=== PATIENT | female | born 1955 | race Caucasian/White ===

== ENCOUNTER → 2020-08-31 13:39 | Outpatient (BNVA) | payer MEDICARE, SELFPAY | PROVIDERS: PCP Nurse Practitioner Family; Visit Provider Internal Medicine | DX: I48.0 Paroxysmal atrial fibrillation (principal); Z51.81 Encounter for therapeutic drug level monitoring; Z79.01 Long term (current) use of anticoagulants | CPT/HCPCS: 85610; 99212 ==

== ENCOUNTER → 2020-09-03 13:05 | Outpatient (BNVA) | payer MEDICARE, SELFPAY | PROVIDERS: PCP Nurse Practitioner Family; Visit Provider Internal Medicine | DX: I48.20 Chronic atrial fibrillation, unspecified (principal); Z79.01 Long term (current) use of anticoagulants; Z51.81 Encounter for therapeutic drug level monitoring | CPT/HCPCS: 85610; 99211 ==

== ENCOUNTER → 2020-09-10 13:20 | Outpatient (BNVA) | payer MEDICARE, SELFPAY | PROVIDERS: PCP Nurse Practitioner Family; Visit Provider Internal Medicine | DX: I48.0 Paroxysmal atrial fibrillation (principal); Z51.81 Encounter for therapeutic drug level monitoring; Z79.01 Long term (current) use of anticoagulants | CPT/HCPCS: 85610; 99211 ==

== ENCOUNTER → 2020-09-21 11:24 | Outpatient (BNVA) | payer MEDICARE, SELFPAY | PROVIDERS: PCP Nurse Practitioner Family; Visit Provider Internal Medicine | DX: I48.0 Paroxysmal atrial fibrillation (principal); Z79.01 Long term (current) use of anticoagulants; Z51.81 Encounter for therapeutic drug level monitoring | CPT/HCPCS: 85610 ==

== ENCOUNTER → 2020-10-07 13:01 | Outpatient (BNVA) | payer MEDICARE, SELFPAY | PROVIDERS: PCP Nurse Practitioner Family; Visit Provider Internal Medicine | DX: I48.0 Paroxysmal atrial fibrillation (principal); Z51.81 Encounter for therapeutic drug level monitoring; Z79.01 Long term (current) use of anticoagulants | CPT/HCPCS: 85610; 99211 ==

== ENCOUNTER → 2020-11-04 12:59 | Outpatient (BNVA) | payer MEDICARE, SELFPAY | PROVIDERS: PCP Nurse Practitioner Family; Visit Provider Internal Medicine | DX: I48.0 Paroxysmal atrial fibrillation (principal); Z51.81 Encounter for therapeutic drug level monitoring; Z79.01 Long term (current) use of anticoagulants | CPT/HCPCS: 85610; 99211 ==

== ENCOUNTER → 2021-01-15 13:22 | Outpatient (BNVA) | payer MEDICARE, SELFPAY | PROVIDERS: PCP Nurse Practitioner Family; Visit Provider Internal Medicine | DX: I48.0 Paroxysmal atrial fibrillation (principal); Z79.01 Long term (current) use of anticoagulants; Z51.81 Encounter for therapeutic drug level monitoring | CPT/HCPCS: 85610; 99211 ==

== ENCOUNTER → 2021-01-29 13:53 | Outpatient (BNVA) | payer MEDICARE, SELFPAY | PROVIDERS: PCP Nurse Practitioner Family; Visit Provider Internal Medicine | DX: I48.0 Paroxysmal atrial fibrillation (principal); Z51.81 Encounter for therapeutic drug level monitoring; Z79.01 Long term (current) use of anticoagulants | CPT/HCPCS: 85610; 99211 ==

== ENCOUNTER → 2021-02-01 15:04 | Outpatient (BNVA) | payer MEDICARE, SELFPAY | PROVIDERS: PCP Nurse Practitioner Family; Visit Provider Internal Medicine | DX: I48.0 Paroxysmal atrial fibrillation (principal); Z51.81 Encounter for therapeutic drug level monitoring; Z79.01 Long term (current) use of anticoagulants | CPT/HCPCS: 85610; 99211 ==

== ENCOUNTER → 2021-02-04 15:48 | Outpatient (BNVA) | payer MEDICARE, SELFPAY | PROVIDERS: PCP Nurse Practitioner Family; Visit Provider Internal Medicine | DX: I48.0 Paroxysmal atrial fibrillation (principal); Z51.81 Encounter for therapeutic drug level monitoring; Z79.01 Long term (current) use of anticoagulants | CPT/HCPCS: 85610; 99211 ==

== ENCOUNTER → 2021-02-09 15:38 | Outpatient (BNVA) | payer MEDICARE, SELFPAY | PROVIDERS: PCP Nurse Practitioner Family; Visit Provider Internal Medicine | DX: I48.0 Paroxysmal atrial fibrillation (principal); Z51.81 Encounter for therapeutic drug level monitoring; Z79.01 Long term (current) use of anticoagulants | CPT/HCPCS: 85610; 99211 ==

== ENCOUNTER 2024-05-27 06:20 | Outpatient (REF) | payer SELFPAY ==
[2024-05-27 06:10] LABS: MANUAL DIFF FLAG NO
[2024-05-27 07:06] LABS: Basophils Percent Auto 0.1 % (0-2); Hematocrit 29.6 % (37.0-47.0); Hemoglobin 9.3 g/dl (12.0-16.0); Imm Gran Abs Auto 0.04 X10*3/uL (0.00-0.03); Imm Gran Pct Auto 0.5 % (0.0-0.4); Lymphocytes Absolute Auto 1.1 X10*3/uL (1.2-4.9); Lymphocytes Percent Auto 12.6 % (20-40); Mean Corpuscular HGB Conc 31.4 g/dl (31.0-35.0); Mean Corpuscular Hemoglobin 28.2 pg (27.0-33.0); Mean Corpuscular Volume 89.7 fL (80.0-98.0); Mean Platelet Volume 9.8 fL (9.4-12.3); Monocytes Absolute Auto 0.7 X10*3/uL (0.1-1.2); Monocytes Percent Auto 7.9 % (2-11); Neutrophils Absolute Auto 6.7 x10*3/uL (2.0-8.3); Neutrophils Percent Auto 78.9 % (45-73); Platelet Count 282 X10*3/uL (160-400); Red Cell Distribution Width 14.5 % (11.0-16.0); White Blood Count 8.5 X10*3/uL (4.8-10.8)
[2024-05-27 07:29] LABS: Anion Gap 13 (12-20); Blood Urea Nitrogen 41 mg/dL (9-16); Carbon Dioxide 28 mmol/L (22-29); Chloride 104 mmol/L (96-108); Estimated Glomerular Filt Rate 45; Glucose Random 105 mg/dL (60-115); Potassium 4.3 mmol/L (3.3-5.1); Sodium 141 mmol/L (135-145)
== END 2024-05-27 06:21 | disposition home or self-care (01) ==
LOC: HO.MMNH2L 06:20
PROVIDERS: Visit Provider Hospitalist
DX: N30.90 Cystitis, unspecified without hematuria (principal); N10 Acute pyelonephritis; G93.40 Encephalopathy, unspecified
CPT/HCPCS: 36415; 80048; 85025

== ENCOUNTER 2024-06-10 07:01 | Outpatient (REF) | payer MEDICARE, SELFPAY | END 2024-06-10 07:02 | disposition home or self-care (01) | LOC: HO.MMNH2L 07:01 | PROVIDERS: Visit Provider Hospitalist | DX: Z13.89 Encounter for screening for other disorder (principal) ==

== ENCOUNTER 2024-08-14 11:50 | Outpatient (REF) | payer SELFPAY ==
[2024-08-14 16:34] LABS: Appearance Urine Turbid; Color Urine Yellow; Glucose Urine UA Negative (Negative); Leukocyte Esterase Urine Large (3+) (Negative); Nitrite Urine Negative (Negative); PH 5.5 (5.0-9.0); Specific Gravity - Urine 1.015 (1.005-1.025); UMIC TRIGGER UACC YES; Urine Blood Moderate (2+) (Negative); Urine Ketones Negative (Negative); Urine Protein 100 (2+) mg/dL (Neg-Trace)
[2024-08-14 17:05] LABS: Bacteria Urine 4+ (None Seen); RBC Urine >20 /HPF (0-2); UACC Culture Trigger YES; WBC Urine >50 /HPF (0-5)
--- OUTSIDE RECORDS SUMMARY | 2024-08-20 19:38 | XMS_ITS | Data Portability ---
Author Organization [facility], Main Office Address [address] [address] [address] [place] [address] Care Team Providers Care Pipe Cutter Name Role Phone CAREONE (NONO UNIT) OTHER [phone] Assessment Encounter Date Assessment Date Assessment LastModified by Organization Details LastModified Time 02/12/2024 02/12/202402/06 na 138 k 3.3 cre 1.8 bun 69 wbc 12.97 hgb 9.74 hct 31.7 Not available 02/12/2024 11:23:12 02/13/2024 02/13/202402/06 na 138 k 3.3 cre 1.8 bun 69 wbc 12.97 hgb 9.74 hct 31.7 6/3 na 141 k 3.8 cre 1.3 bun 29 wbc 11.11 hgb 10 hct 34 5/28 wbc=11.1 hb=10.5 cre=2.15 glord Not available 02/13/2024 11:02:38 02/19/2024 02/19/202402/06 na 138 k 3.3 cre 1.8 bun 69 wbc 12.97 hgb 9.74 hct 31.7 6/3 na 141 k 3.8 cre 1.3 bun 29 wbc 11.11 hgb 10 hct 34 5/28 wbc=11.1 hb=10.5 cre=2.15 Not available 02/19/2024 11:50:45 02/21/2024 02/21/202402/06 na 138 k 3.3 cre 1.8 bun 69 wbc 12.97 hgb 9.74 hct 31.7 6/3 na 141 k 3.8 cre 1.3 bun 29 wbc 11.11 hgb 10 hct 34 5/28 wbc=11.1 hb=10.5 cre=2.15 02/06 na 138 k 3.3 cre 1.8 bun 69 wbc 12.97 hgb 9.74 hct 31.7 02/19: na 142, k 4.6, bun 18, creat 1.20, bnp 2601 glord Not available 02/21/2024 09:16:33 02/23/2024 02/23/202402/06 na 138 k 3.3 cre 1.8 bun 69 wbc 12.97 hgb 9.74 hct 31.7 02/11 na 141 k 3.8 cre 1.3 bun 29 wbc 11.11 hgb 10 hct 34 02/05 wbc=11.1 hb=10.5 cre=2.15 02/06 na 138 k 3.3 cre 1.8 bun 69 wbc 12.97 hgb 9.74 hct 31.7 02/19: na 142, k 4.6, bun 18, creat 1.20, bnp 2601 glord Not available 02/23/2024 09:55:55 Plan of Treatment Reminders Order Date Submit Date Provider Last Modified By Organization Details Last Modified Time Details Appointments None record ed. Lab None record ed. Referral None record ed. Procedures None record ed. Surgeries None record ed. Imaging None record ed. Medication Orders None record ed. Patient TargetsNo targets recorded. Patient InstructionsNo instructions recorded. Reason for Referral None Reported. Problems Name Problem SNOMED Code Status Onset Date Resolution Date Notes Provider Name and Address Organization Details Recorded Time Irritable bowel syndrome 99766558 Active 2023 [employer] [facility] [address], [address], [facility] [employer] 12:54:58 Obstructive sleep apnea syndrome 71989117 Active 2023 [employer] , [address], [place], [address], [facility] 4 12:55:01 Congestive heart failure 91738309 Active 2023 [employer] , [address], [place], [address], [facility] [employer] 4 12:55:05 Mixed anxiety and depressive disorder 568900386 Active 2023 [employer] , [address], [place], [address], [facility] 4 12:55:19 Falls 196264161 Active 2023 [facility], [place], [address], [facility] 4 12:55:23 Anemia 847596157 Active 2023 [facility] [address], [address], [place], [address], [facility] 4 12:55:28 Fibromyalgi a 789529960 Active 2023 [facility] [address], [address], [place], [address], [facility] 4 12:55:33 Hypercholes terolemia 67706745 Active [address], [address], [place], [address], [facility] 4 12:55:39 Essential hypertensio n 16146693 Active [address], [place], [address], [facility] 4 12:55:45 Coronary arterioscle rosis 02772523 Active [address], [address], [place], [address], [facility] 4 12:55:59 Diabetes mellitus 27430120 Active 2023 [address] , [address], [place], [address], [facility] 4 12:56:02 Aortic valve stenosis 21484226 Active [address], [address], [place], [address], [facility] 4 12:56:26 Asthma 097846805 Active 2023 [facility] [address], [address], [place], [address], [facility] 4 12:56:34 Atrial fibrillatio n 43206311 Active 2023 IRA LORD [address], [address], [place], [address], [employer] [facility] 4 12:56:39 Malignant tumor of cervix 544381185 Active 2023 IRA LORD [address], [address], [place], [address], [facility] [facility] 4 12:56:51 Morbid obesity 881898250 Active 2023 IRA LORD [address], [address], [place], [address], [facility] 4 12:57:07 Acute nontraumati c kidney injury 4862339954389 03 Active 2023 IRA LORD [address], [address], [place], [address], [facility] 4 13:27:11 Problem Notes None recorded. Procedures Surgical History Date Name Laterality Status Provider Name and Address Organization Details Recorded Time total replacement of right knee joint completed IRA LORD [address], [address], [place], [address], [facility] [facility] 02/07/2024 12:58:[address], [address], [place], [address], [facility] 02/07/2024 12:58:42 Appendectomy completed IRA LORD [address], [address], [place], [address], [facility] 02/07/2024 12:58:50 Imaging Results None recorded. Procedure Notes None recorded. Medical Equipment None Reported. Allergies Allergen ID Allergen Name Allergen Category Reaction Reaction Severity Criticality Documentation Date Start Date Code Code System Note Provider Name and Address Organization Details Recorded Time 23806 Bactrim medicatio n Not available Not available Not available 02/07/2024 27782 9 RxNorm IRA LORD [address], [address], [place], [address], [facility] 12:53:17 96802 Keflex medicatio n Not available Not available Not available 02/07/2024 13618 7 RxNorm IRA LORD [address], [address], [place], [address], [facility] 4 12:53:21 80972 clindamyc in Not available Not available Not available Not available 02/07/2024 2582 RxNorm IRA LORD [address] [facility], [address], [place], [address], [facility] [facility] 4 12:53:33 11088 gabapenti n medicatio n Not available Not available Not available 02/07/2024 97786 RxNorm IRA LORD [address] [facility], [address], [place], [address], [facility] [facility] 4 12:53:36 29788 hydrochlo rothiazid e medicatio n Not available Not available Not available 02/07/[address] [facility] [address] [facility], [address], [place], [address], [facility] [facility] 4 12:53:42 32343 Medicinal product containin g penicilli n and acting as antibacte rial agent (product) medicatio n Not available Not available Not available 02/07/2024 20534 05 SNOMED IRA LORD [address] [place] [address], [address], [place], [address], [facility] [employer] 4 12:53:51 93529 Product containin g 3-hydroxy -3-methyl glutaryl- coenzyme A reductase inhibitor (product) medicatio n Not available Not available Not available 02/07/2024 20517 009 SNOMED IRA LORD [address] [place] [address], [address], [place], [address], [facility] 4 12:53:57 Medications Not known to be on any medication Vitals Date Recorded Body temperature Heart rate Systolic blood pressure Diastolic blood pressure Provider Name and Address Organization Details Last Updated DateTime 02/12/2024 97.8 [degF] 78 /min 127 mm[Hg] 56 mm[Hg] IRA L ORD [address] [facility], [address], [place], [address] , [employer] [facility] 02/12/2024 08:48:06 Date Recorded Body weight Systolic blood pressure Diastolic blood pressure Provider Name and Address Organization Details Last Updated DateTime 02/13/2024 484998.51 g 151 mm[Hg] 56 mm[Hg] IRA LORD [address], [address], [place], [address], [facility] 02/13/2024 11:02:26 Date Recorded Body temperature Heart rate Systolic blood pressure Diastolic blood pressure Provider Name and Address Organization Details Last Updated DateTime 02/21/2024 97.4 [degF] 68 /min 150 mm[Hg] 56 mm[Hg] IRA L ORD [address] [facility], [address], [place], [address] , [facility] 02/21/2024 09:15:36 Date Recorded Body weight Provider Name an d Address Organization Details Last Updated DateTime 02/23/2024 86938.32 g IRA LORD [address] [facility], [address], [place], [address], [facility] 02/23/2024 09:28:17 Social History None recorded. Functional Status None recorded. Mental Status None recorded. Family History Nothing Reported. Medical History No medical history recorded. Gynecological HistoryNo gynecological history recorded. Obstetrics History GPAL:G 0 P 0 0 0 0 Immunizations Vaccine Type Date Status Provider Name and Address Organization Details Recorded Time Tdap 06/10/2020 completed Piedad Mai [facility] 02/09/2024 16:00:40 Pneumococcal conjugate PCV 13 07/04/2018 completed Piedad Mai [facility] 02/09/2024 16:00:54 pneumococcal polysaccharide PPV23 06/18/2019 completed Piedad Mai [facility] 02/09/2024 16:01:09 influenza, unspecified formulation 06/22/2022 completed Piedad Mai [facility] 02/09/2024 16:01:29 influenza, unspecified formulation 06/19/2023 completed Piedad Mai [facility] 02/09/2024 16:01:37 SARS-COV-2 (COVID-19) vaccine, UNSPECIFIED 12/23/2020 [facility] 16:01:57 SARS-COV-2 (COVID-19) vaccine, UNSPECIFIED 01/21/2021 completed Piedad Mai [facility] 02/09/2024 16:02:07 SARS-COV-2 (COVID-19) vaccine, UNSPECIFIED 09/01/2021 completed Piedad Mai [facility] 02/09/2024 16:02:14 Past Encounters Encounter ID Performer Location Encounter Start Date Encounter Closed Date Diagnosis/Indication Diagnosis SNOMED-CT Code Diagnosis ICD10 [facility] [id number] [facility] [address] [place] [id number] 02/07/2024 12:07:54 02/09/2024 11:05:42 Congestive heart failure 92823182 I50.9 Diabetes mellitus 842005 09 E11.9 Acute nont raumatic kidney injury 0147047647 32875 N17.9 Falls 757859492 R29.6 Coronary arteriosclerosis 93551167 I25.10 Atrial fibrillation 4943 6004 I48.91 Fibromyalgia 863548072 M 79.7 Essential hypertension 99552639 I10 Irritable bowel syndrome 14571031 K58.9 Mixed anxi ety and depressive disorder 049963956 F41.8 Obstructiv e sleep apnea syndrome 09852372 G47.33 [id number] IRA CHAPMAN [facility] on [address] [place] [id number] 02/09/2024 10:44:41 02/15/2024 15:21:43 Leukocytosis 793988214 D72.829 [id number] Haile Garcia MD [facility] on [address] [place] [id number] 02/11/2024 13:08:26 02/15/2024 15:33:56 Congestive heart failure 45204578 I50.43 Acute nont raumatic kidney injury 2263743040 36112 N17.8 Diabetes mellitus 238599 09 E11.9 Falls 916730274 R29.6 Coronary arteriosclerosis 64554720 I25.10 Atrial fibrillation 4943 6004 I48.0 Essential hypertension 69466045 I10 Irritable bowel syndrome 85729842 K58.9 Mixed anxi ety and depressive disorder 199950527 F41.8 Obstructiv e sleep apnea syndrome 16687350 G47.33 [id number] IRA Murguia [facility] on [address] [place], [place] [id number] 02/12/2024 08:45:06 02/15/2024 15:57:04 Congestive heart failure 52311013 I50.43 Acute nont raumatic kidney injury 0010054837 05112 N17.8 Falls 948958204 R29.6 Diabetes mellitus 343323 09 E11.9 [id number] IRA Murguia at [facility] on [address] [place] [address] 02/13/2024 09:10:39 02/15/2024 16:07:26 Congestive heart failure 38339857 I50.43 Acute nont raumatic kidney injury 0565238943 71556 N17.8 Falls 020559542 R29.6 [id number] IRA Murguia at [facility] on [address] [place] [address] 02/19/2024 14:02:28 02/22/2024 11:35:54 Congestive heart failure 68731862 I50.43 Acute nont raumatic kidney injury 2830634979 20248 N17.8 Falls 800000283 R29.6 [id number] IRA Murguia at [facility] on [address] [place] [address] 02/21/2024 09:14:28 02/23/2024 15:13:07 Congestive heart failure 32542804 I50.43 Acute nont raumatic kidney injury 2691932839 62820 N17.8 [id number] IRA Murguia at [facility] on [address] [place], [place] [id number] 02/23/2024 09:25:30 02/28/2024 10:22:25 Congestive heart failure 57166744 I50.43 Acute nont raumatic kidney injury 7998401533 21740 N17.8 Falls 714525174 R29.6 Diabetes mellitus 972563 09 E11.9 Coronary arteriosclerosis 61413374 I25.10 Atrial fibrillation 4943 6004 I48.91 Fibromyalgia 435051299 M 79.7 Essential hypertension 71484089 I10 Irritable bowel syndrome 92105291 K58.9 Mixed anxi ety and depressive disorder 930529820 F41.8 Obstructiv e sleep apnea syndrome 25230660 G47.33 Health Concerns Section Related Observation LastModified by Organization Detai ls LastModified Time None Recorded Concern Status LastModified by Organization Details LastModified Time None Recorded Advance Directives Directive None Recorded Payers Encounter Date Sequence Insurance Name Policy Number Policy Nichols Covered Member ID Nichols Member ID Guarantor Name 02/12/2024 1 MEDICARE B-[place]: [facility] Risa Cisneros [id number] Risa Cisneros 02/12/2024 2 [employer] (MEDICARE SUPPLEMENT) Risa Cisneros [id number] Risa Cisneros 02/13/2024 1 MEDICARE B-ME: [facility] Risa Cisneros [id number] Risa Cisneros 02/13/2024 2 [employer] (MEDICARE SUPPLEMENT) Risa Cisneros [id number] Risa Cisneros 02/19/2024 1 MEDICARE B-ME: [facility] Risa Cisneros [id number] Risa Cisneros 02/19/2024 2 [employer] (MEDICARE SUPPLEMENT) Risa Cisneros [id number] Risa Cisneros 02/21/2024 1 MEDICARE B-ME: [facility] Risa Cisneros [id number] Risa Cisneros 02/21/2024 2 [employer] (MEDICARE SUPPLEMENT) Risa Cisneros [id number] Risa Cisneros 02/23/2024 1 MEDICARE B-ME: [facility] Risa Cisneros [id number] Risa Cisneros 02/23/2024 2 [employer] (MEDICARE SUPPLEMENT) Risa Cisneros [id number] Risa Cisneros Notes Date Note Type Note Provider Name and Address Organization Details Recorded Time 02/12/2024 text/html Patient is a 68 yo female being seen for acute rounding. She is an admit from hospital after presenting with increasing shortness of breath and recurrent falls. Noted to be in ARF with nephro consulted. Dx with chf exacerbation treated with IV lasix. Cre jordan to 1.7 from baseline 1.1-1.2 improved with supportive care to f/u nephro out patient. An order of torsemide PRN was placed yesterday, if weight gain is +3lbs. Her weight was up so the torsemide was given, however she likely needs to continue this dose as she would not gain another 3 lbs today to trigger nurses to give order. Will place her on torsemide x 3 days and re-eval weights. Seen today. She was lying flat in bed sleeping. She denies orthopnea or sob. Legs are puffy. She received a dose of torsemide this morning which made her urinate a lot she said. Updated on plan to continue diuresing. Continue daily weights IRA CHAPMAN [address] [place] [address], [address], [place], [address], [employer] 02/12/2024 12:01:38 02/13/2024 text/html Patient is a 68 yo female being seen for acute rounding. She is an admit from hospital after presenting with increasing shortness of breath and recurrent falls. Noted to be in ARF with nephro consulted. Dx with chf exacerbation treated with IV lasix. Cre jordan to 1.7 from baseline 1.1-1.2 improved with supportive care to f/u nephro out patient. Patient is up 5 lbs since admission. Torsemide 40 mg po daily X3 days started with plan to re-eval weights. She was seen and evaluated today. She was sitting up in bed. She denies any sob or orthopnea. Her legs continue to be puffy, same as yesterday. She is saturating 94% on RA. BP entered this morning much higher than what shes been, on recheck 151/56, but she just received her am meds. IRA CHAPMAN [address] [place] [address], [address], [place], [address], [facility] 02/13/2024 11:03:20 02/19/2024 text/html Patient is a 68 yo female being seen for acute rounding. She is an admit from hospital after presenting with increasing shortness of breath and recurrent falls. Noted to be in ARF with nephro consulted. Dx with chf exacerbation treated with IV lasix. Cre jordan to 1.7 from baseline 1.1-1.2 improved with supportive care to f/u nephro out patient. Rehab course complicated by CHF. Patient initially up 5 lbs since admission. Torsemide given for 3 days with last dose 02/15. Weight was trending down, now back up 8 lbs since admission. Seen today. Sitting up on chair in dining area. She says she feels horrible, tired, and sob. She reports orthopnea and feels shes filling up with fluids. It is hard to fit in her clothes and put shoes on. Maintaining sats 95/97% on RA. IRA CHAPMAN [address] [place] [address], [address], [place], [address], [employer] 02/19/2024 14:04:57 02/21/2024 text/html Patient is a 68 yo female being seen for acute rounding. She is an admit from hospital after presenting with increasing shortness of breath and recurrent falls. Noted to be in ARF with nephro consulted. Dx with chf exacerbation treated with IV lasix. Cre jordan to 1.7 from baseline 1.1-1.2 improved with supportive care to f/u nephro out patient. Rehab course complicated by CHF. Patient initially up 5 lbs since admission. Torsemide given for 3 days with last dose 02/15. Weight was trending down, then back up 8 lbs since admission. She was placed back on torsemide 40 mg daily x 3 days on 02/18, weights today appear to be climbing, 227. She ws supposed to DC home tomorrow, will keep her until monday and try to diurese. IRA CHAPMAN [address] [place] [address], [address], [place], [address], [employer] 02/21/2024 09:35:15 02/23/2024 text/html Patient is a 68 yo female being seen for discharge summary visit. She is an admit from hospital after presenting with increasing shortness of breath and recurrent falls. Noted to be in ARF with nephro consulted. Dx with chf exacerbation treated with IV lasix. Cre jordan to 1.7 from baseline 1.1-1.2 improved with supportive care to f/u nephro out patient. Rehab course complicated by CHF. Patient initially up 10 lbs since admission. She was placed back on torsemide, most recently on 80 mg BID. She is now down 7 lbs. She will DC home today with meds and services. Will decrease torsemide back to 40 mg daily and ask VNA and PCP to monitor. CHECK WEIGHTS DAILY AT HOME, IF INCREASE OF 3 LBS SHOULD TITRATE TORSEMIDE DOSING. IRA CHAPMAN [address] [place] [address], [address], [place], [address], [facility] [employer] 02/23/2024 09:56:21 OBGyn Episode No OBEpisode recorded.
== END 2024-08-14 11:51 | disposition home or self-care (01) ==
LOC: HO.HVNA 11:50
PROVIDERS: Visit Provider Nurse Practitioner Family
DX: N39.0 Urinary tract infection, site not specified (principal)
CPT/HCPCS: 81001; 87086

== ENCOUNTER 2024-08-29 13:40 | Outpatient (REF) | payer MEDICARE, SELFPAY ==
--- OUTSIDE RECORDS SUMMARY | 2024-08-29 14:02 | XMS_ITS | Data Portability ---
Author Organization [facility], Main Office Address [address] [address] [address] [place] [address] Care Team Providers Care Gray Mixing Operator Name Role Phone CAREONE (NONO UNIT) OTHER [phone] Assessment Encounter Date Assessment Date Assessment LastModified [...] Organization Details Recorded Time Irritable bowel syndrome 40495448 Active [facility]23 [facility] [address], [address], [facility] 12:54:58 Obstructive sleep apnea syndrome 56580459 Active 2023 [employer] , [address], [place], [address], [facility] 4 12:55:01 Congestive heart failure 71799239 Active 2023 [employer] , [address], [place], [address], [facility] 4 12:55:05 Mixed anxiety and depressive disorder 774675487 Active 2023 [employer] , [address], [place], [address], [facility] 4 12:55:19 Falls 337638581 Active [address], [place], [address], [facility] 4 12:55:23 Anemia [address]242 Active [address] [facility] [address], [address], [place], [address], [facility] 4 12:55:28 Fibromyalgi a 146004681 Active [address] [facility] [address], [address], [place], [address], [facility] 4 12:55:33 Hypercholes terolemia 07401154 Active [address], [address], [place], [address], [facility] 4 12:55:39 Essential hypertensio n 36765723 Active [address], [place], [address], [facility] 4 12:55:45 Coronary arterioscle rosis 16700519 Active [address], [place], [address], [facility] 4 12:55:59 Diabetes mellitus 71889383 Active [address] , [address], [place], [address], [facility] 4 12:56:02 Aortic valve stenosis 35487438 Active [address], [address], [place], [address], [facility] 4 12:56:26 Asthma 6[address]6048 Active [address] [facility] [address], [address], [place], [address], [facility] 4 12:56:34 Atrial fibrillatio n 69745906 Active 2023 IRA LORD [address], [address], [place], [address], [facility] 4 12:56:39 Malignant tumor of cervix 521875502 Active 2023 IRA LORD [address], [address], [place], [address], [facility] 4 12:56:51 Morbid obesity 786154924 Active 2023 IRA LORD [address], [address], [place], [address], [facility] 4 12:57:07 Acute nontraumati c kidney injury 8782366735966 03 Active 2023 IRA LORD [address], [address], [place], [address], [facility] 4 13:27:11 Problem Notes None recorded. Procedures Surgical History Date Name Laterality Status Provider Name and Address Organization Details Recorded Time total replacement of right knee joint completed IRA LORD [address], [address], [place], [address], [facility] 02/07/2024 12:58:[address] delivery completed IRA LO [address], [address], [place], [address], [facility] 02/07/2024 12:58:42 Appendectomy completed IRA LORD [address], [address], [place], [address], [facility] 02/07/2024 12:58:50 Imaging Results None recorded. Procedure Notes None recorded. Medical Equipment None Reported. Allergies Allergen ID Allergen Name Allergen Category Reaction Reaction Severity Criticality Documentation Date Start Date Code Code System Note Provider Name and Address Organization Details Recorded Time [id number] 376192116 2675088i3 2824e Bactrim medicatio n Not available Not available Not available 02/07/2024 90296 9 RxNorm Not Available Not Available Not Available [id number] 648534914 2359065n2 2824e Keflex medicatio n Not available Not available Not available 02/07/2024 46718 7 RxNorm Not Available Not Available Not Available [id number] 905494338 6031755q0 2824e clindamyc in Not available Not available Not available Not available 02/07/2024 2582 RxNorm Not Available Not Available Not Available [id number] 587944447 8873522m3 2824e gabapenti n medicatio n Not available Not available Not available 02/07/2024 01499 RxNorm Not Available Not Available Not Available [id number] 455910655 [id number] 2824e hydrochlo rothiazid e medicatio n Not available Not available Not available 02/07/2024 5487 RxNorm Not Available Not Available Not Available [id number] 780403683 [id number] 2824e Medicinal product containin g penicilli n and acting as antibacte rial agent (product) medicatio n Not available Not available Not available 02/07/2024 93651 05 SNOMED Not Available Not Available Not Available [id number] 352207787 9279348e4 2824e Product containin g 3-hydroxy -3-methyl glutaryl- coenzyme A reductase inhibitor (product) medicatio n Not available Not available Not available 02/07/2024 78053 009 SNOMED Not Available Not Available Not Available Medications Not known to be on any medication Vitals Date Recorded Body temperature Heart rate Systolic blood pressure Diastolic blood pressure Provider Name and Address Organization Details Last Updated DateTime 02/12/2024 97.8 [degF] 78 /min 127 mm[Hg] 56 mm[Hg] IRA L ORD [address], [address] , [facility] 02/12/2024 08:48:06 Date Recorded Body weight Systolic blood pressure Diastolic blood pressure Provider Name and Address Organization Details Last Updated DateTime 02/13/2024 932671.51 g 151 mm[Hg] 56 mm[Hg] IRA LORD [address], [address], [address], [facility] 02/13/2024 11:02:26 Date Recorded Body temperature Heart rate Systolic blood pressure Diastolic blood pressure Provider Name and Address Organization Details Last Updated DateTime 02/21/2024 97.4 [degF] 68 /min 150 mm[Hg] 56 mm[Hg] IRA L ORD 38 [facility], [address], [place], [address] , [facility] 02/21/2024 09:15:36 Date Recorded Body weight Provider Name an d Address Organization Details Last Updated DateTime 02/23/2024 79185.32 g IRA CHAPMAN [address] [facility], [address], [place], [address], [facility] 02/23/2024 09:28:17 Social History None recorded. Functional Status None recorded. Mental Status None recorded. Family History Nothing Reported. Medical History No medical history recorded. Gynecological HistoryNo gynecological history recorded. Obstetrics History GPAL:G 0 P 0 0 0 0 Immunizations Vaccine Type Date Status Note Provider Nam e and Address Organization Details Recorded Time Tdap 0 [facility] 16:00:40 Pneumococcal conjugate PCV 13 8 [facility] 02/09/2024 16:00:54 pneumococcal polysaccharide PPV23 9 [facility] 02/09/2024 16:01:09 influenza, unspecified formulation 2 completed [facility] 02/09/2024 16:01:29 influenza, unspecified formulation 3 completed [facility] 02/09/2024 16:01:37 SARS-COV-2 (COVID-19) vaccine, UNSPECIFIED 1 [facility] 02/09/2024 16:01:57 SARS-COV-2 (COVID-19) vaccine, UNSPECIFIED 1 completed Piedad [facility] 02/09/2024 16:02:07 SARS-COV-2 (COVID-19) vaccine, UNSPECIFIED 1 completed [facility] 02/09/2024 16:02:14 Past Encounters Encounter ID Performer Location Encounter Start Date Encounter Closed Date Diagnosis/Indication Diagnosis SNOMED-CT Code Diagnosis ICD10 Code [id number] [facility] [address] [place] [address] 02/07/2024 12:07:54 02/09/2024 11:05:42 Congestive heart failure 02463100 I50.9 Diabetes mellitus 878093 09 E11.9 Acute nont raumatic kidney injury 4473875405 15934 N17.9 Falls 316297848 R29.6 Coronary arteriosclerosis 35263810 I25.10 Atrial fibrillation 4943 6004 I48.91 Fibromyalgia 051058750 M 79.7 Essential hypertension 66026170 I10 Irritable bowel syndrome 89556068 K58.9 Mixed anxi ety and depressive disorder 828681434 F41.8 Obstructiv e sleep apnea syndrome 72846870 G47.33 [id number] [facility] [address] [place] [id number] 02/09/2024 10:44:41 02/15/2024 15:21:43 Leukocytosis 015061360 D72.829 [id number] MD [facility] [address] [place] [id number] 02/11/2024 13:08:26 02/15/2024 15:33:56 Congestive heart failure 15673607 I50.43 Acute nont raumatic kidney injury 7656293093 27282 N17.8 Diabetes mellitus 682852 09 E11.9 Falls 802474075 R29.6 Coronary arteriosclerosis 52137311 I25.10 Atrial fibrillation 4943 6004 I48.0 Essential hypertension 54576456 I10 Irritable bowel syndrome 93405128 K58.9 Mixed anxi ety and depressive disorder 428809682 F41.8 Obstructiv e sleep apnea syndrome 13966334 G47.33 [id number] [facility] [address] [place] [id number] 02/12/2024 08:45:06 02/15/2024 15:57:04 Congestive heart failure 25186180 I50.43 Acute nont raumatic kidney injury 1901544505 67187 N17.8 Falls 108569779 R29.6 Diabetes mellitus 169097 09 E11.9 [id number] [facility] [address] [place] [id number] 02/13/2024 09:10:39 02/15/2024 16:07:26 Congestive heart failure 21747368 I50.43 Acute nont raumatic kidney injury 7933060340 51770 N17.8 Falls 560897313 R29.6 [id number] IRA [facility] on [address] [place] [id number] 02/19/2024 14:02:28 02/22/2024 11:35:54 Congestive heart failure 72603622 I50.43 Acute nont raumatic kidney injury 0135869190 65584 N17.8 Falls 706800149 R29.6 [id number] IRA [facility] on [address] [place] [id number] 02/21/2024 09:14:28 02/23/2024 15:13:07 Congestive heart failure 87154302 I50.43 Acute nont raumatic kidney injury 7371217209 39623 N17.8 [id number] IRA [facility]urg[facility] on [address] [place] [id number] 02/23/2024 09:25:30 02/28/2024 10:22:25 Congestive heart failure 35444001 I50.43 Acute nont raumatic kidney injury 7361097037 69695 N17.8 Falls 480902521 R29.6 Diabetes mellitus 995744 09 E11.9 Coronary arteriosclerosis 65760622 I25.10 Atrial fibrillation 4943 6004 I48.91 Fibromyalgia 565111042 M 79.7 Essential hypertension 87458946 I10 Irritable bowel syndrome 45544654 K58.9 Mixed anxi ety and depressive disorder 295560412 F41.8 Obstructiv e sleep apnea syndrome 08510930 G47.33 Health Concerns Section Related Observation LastModified by Organization Detai ls LastModified Time None Recorded Concern Status LastModified by Organization Details LastModified Time None Recorded Advance Directives Directive None Recorded Payers Encounter Date Sequence Insurance Name Policy Number Policy Nichols Covered Member ID Nichols Member ID Guarantor Name 02/12/2024 1 MEDICARE [place]: [facility] [employer] Risa Cisneros [id number] Risa Cisneros 02/12/2024 2 [employer] OPTIONS (MEDICARE SUPPLEMENT) Risa Cisneros [id number] iRsa Cisneros 02/13/2024 1 [place] [facility] Risa Cisneros [id number] Risa Cisneros 02/13/2024 2 [employer] OPTIONS (MEDICARE SUPPLEMENT) Risa Cisneros [id number] Risa Cisneros 02/19/2024 1 [place] [facility] Risa Cisneros [id number] Risa Cisneros 02/19/2024 2 [employer] OPTIONS (MEDICARE SUPPLEMENT) Risa Cisneros [id number] Risa Cisneros 02/21/2024 1 [place] [facility] Risa Cisneros [id number] Risachristiane Cisneros 02/21/2024 2 [employer] OPTIONS (MEDICARE SUPPLEMENT) Risa Cisneros [id number] Risa Cisneros 02/23/2024 1 [place] [facility] Risa Cisneros [id number] Risa Cisneros 02/23/2024 2 [employer] OPTIONS (MEDICARE SUPPLEMENT) Risa Cisneros [id number] Risa Cisneros Notes Date Note Type Note [...] continue diuresing. Continue daily weights IRA CHAPMAN [address] [place] [address], [address], [place], [address], [facility] 02/12/2024 12:01:38 02/13/2024 text/html Patient is a [...] just received her am meds. IRA CHAPMAN [address] [place] [address], [address], [place], [address], [facility] 02/13/2024 11:03:20 02/19/2024 text/html Patient is a [...] Maintaining sats 95/97% on RA. IRA CHAPMAN [address] [place] [address], [address], [place], [address], [facility] 02/19/2024 14:04:57 02/21/2024 text/html Patient is a [...] monday and try to diurese. IRA CHAPMAN [address] [place] [address], [address], [place], [address], [facility] 02/21/2024 09:35:15 02/23/2024 text/html Patient is a [...] LBS SHOULD TITRATE TORSEMIDE DOSING. IRA CHAPMAN [address] [place] [address], [address], [place], [address], [facility] 02/23/2024 09:56:21 OBGyn Episode No OBEpisode recorded.
[2024-08-29 16:47] LABS: Appearance Urine Cloudy; Color Urine Yellow; Glucose Urine UA Negative (Negative); Leukocyte Esterase Urine Small (1+) (Negative); Nitrite Urine Negative (Negative); Specific Gravity - Urine 1.015 (1.005-1.025); UMIC TRIGGER UACC YES; Urine Blood Negative (Negative); Urine Ketones Negative (Negative); Urine Protein Negative (Neg-Trace)
[2024-08-29 16:52] LABS: Bacteria Urine None Seen (None Seen); RBC Urine 0-2 /HPF (0-2); UACC Culture Trigger YES
== END 2024-08-29 13:41 | disposition home or self-care (01) ==
LOC: HO.HVNA 13:40
PROVIDERS: Visit Provider Internal Medicine
DX: R30.0 Dysuria (principal)
CPT/HCPCS: 81001; 87086

== ENCOUNTER 2024-12-16 12:02 | Outpatient (REF) | payer MEDICARE, SELFPAY ==
--- OUTSIDE RECORDS SUMMARY | 2024-12-16 14:30 | XMS_ITS | Encounter Summary ---
Author Organization [facility], Address [address] [place] [address] Phone Care Team Providers Care Sprigger Name Role Phone Olamide Lyle NP Primary Care Provider [phone]- [phone] Encounter Details Date Type Department Care Team (Late st Contact Info) Description 10/11/2024 Documentation Only [facility], [address] [place] [address] Leonie Thomas [place] [address] [place] [address] Social History Tobacco Use Types Packs/Day Years Used Date Smoking Tobacco: Never Assessed Comments Unknown Sex and Gender Information Value Date Recorded Sex Assigned at Not on file Legal Sex Female 5:12 PM EST Gender Identity Not on file Sexual Orientation Not on file documented as of this encounter Plan of Treatment Not on file documented as of this encounter Visit Diagnoses Not on filedocumented in this encounter Care Teams Sprigger Relationship Specialty Start Date End Date Olamide Lyle NP [address] [place] [address], [address] [place] [address] PCP - General Nurse Practitioner 03/04/24 documented as of this encounter
--- OUTSIDE RECORDS SUMMARY | 2024-12-16 14:30 | XMS_ITS | Encounter Summary ---
Author Organization [facility], Address [address] [place] [address] Phone Care Team Providers Care Wafer Production Lead Worker Name Role Phone Olamide Lyle NP Primary Care Provider +1- [phone] Encounter Details Date Type Department Care Team (Late st Contact Info) Description 10/11/2024 Documentation Only [facility], [address] [place] [address] [address] [place] [address] Social History Tobacco Use Types [...] on filedocumented in this encounter Care Teams Wafer Production Lead Worker Relationship Specialty Start Date End Date Olamide Lyle NP [address] [place] [address], [address] [place] [address] PCP - General Nurse Practitioner 03/04/24 documented as of this encounter
--- OUTSIDE RECORDS SUMMARY | 2024-12-16 14:30 | XMS_ITS | Encounter Summary ---
Author Organization [facility], Address [address] [place] [address] Phone Care Team Providers Care Housekeeper Manager Name Role Phone Olamide Lyle NP Primary Care Provider +1- [phone] Encounter Details Date Type Department Care Team (Late st Contact Info) Description 04/08/2024 Documentation Only [facility], [address] [place] [address] Haleigh Almanza [address] [place] [address] Social History Tobacco Use Types [...] on filedocumented in this encounter Care Teams Housekeeper Manager Relationship Specialty Start Date End Date Olamide Lyle NP [address] [place] [address], [address] [place] [address] PCP - General Nurse Practitioner 03/04/24 documented as of this encounter
--- OUTSIDE RECORDS SUMMARY | 2024-12-16 14:30 | XMS_ITS | Encounter Summary ---
Author Organization [facility], Address [address] [place] [address] Phone Care Team Providers Care Road Maker Name Role Phone Olamide Lyle NP Primary Care Provider [phone]- [phone] Encounter Details Date Type Department Care Team (Late st Contact Info) Description 04/08/2024 Documentation Only [facility], [address] [place] [address] Haleigh Almanza [address] [place] [address] Social History Tobacco Use Types [...] on filedocumented in this encounter Care Teams Road Maker Relationship Specialty Start Date End Date Olamide Lyle NP [address] [place] [address], [address] [place] [address] PCP - General Nurse Practitioner 03/04/24 documented as of this encounter
--- OUTSIDE RECORDS SUMMARY | 2024-12-16 14:30 | XMS_ITS | Encounter Summary ---
Author Organization [facility], Address [address] [place] [address] Phone Care Team Providers Care Barrel Bridge Assembler Name Role Phone Olamide Lyle NP Primary Care Provider [phone]- [phone] Encounter Details Date Type Department Care Team (Late st Contact Info) Description 04/08/2024 Documentation Only [facility], [address] [place] [address] Haleigh Almanza [address] [place] [address] Social History Tobacco Use Types [...] on filedocumented in this encounter Care Teams Barrel Bridge Assembler Relationship Specialty Start Date End Date Olamide Lyle NP [address] [place] [address], [address] [place] [address] PCP - General Nurse Practitioner 03/04/24 documented as of this encounter
--- OUTSIDE RECORDS SUMMARY | 2024-12-16 14:30 | XMS_ITS | Encounter Summary ---
Author Organization [facility], Address [address] [place] [address] Phone Care Team Providers Care Scheduling Analyst Name Role Phone Olamide Lyle NP Primary Care Provider +1- [phone] Encounter Details Date Type Department Care Team (Late st Contact Info) Description 10/11/2024 Documentation Only [facility], [address] [place] [address] Leonie Thomas [place] [address] [place] [address] Social History Tobacco Use Types [...] on filedocumented in this encounter Care Teams Scheduling Analyst Relationship Specialty Start Date End Date Olamide Lyle NP [address] [place] [address], [address] [place] [address] PCP - General Nurse Practitioner 03/04/24 documented as of this encounter
--- OUTSIDE RECORDS SUMMARY | 2024-12-16 14:31 | XMS_ITS | Clinical Summary ---
Author Organization [facility], Address [address] [place] [address] [place] [address] Phone Care Team Providers Care Automatic Developer Name Role Phone Olamide Lyle NP Primary Care Provider [phone] Allergies Active Allergy Reactions Criticality Noted Date Comments Atorvastatin 02/06/2024 Other Reaction(s): muscle aches, Unknown Cephalexin 05/20/2021 Could not breathe, felt like drowning and could not catch breath. Clindamycin Other (see comments) 08/05/2017 Other Reaction(s): Unknown Level of certainty: Very Certain Metallic taste. Gabapentin Other (see comments) 01/24/2024 Other Reaction(s): Unknown Level of certainty: Very Certain Hydrochlorothiazide Other (see comments) 08/05/2017 Other Reaction(s): body aches, Unknown Level of certainty: Very Certain Milk (Cow) 02/06/2024 Penicillins Rash Low 02/06/2024 Other Reaction(s): Unknown Level of certainty: Very Certain Sulfamethoxazole-Trimethopr im GI intolerance 08/05/2017 Other Reaction(s): Unknown, upset stomach Level of certainty: Very Certain Medications aspirin (ST BARAK) 81 MG EC tablet Take 81 mg by mouth 1 (one) time each day Active Cholecalciferol 50 MCG (1999 UT) capsule Take by mouth Acti ve clopidogrel (PLAVIX) 75 MG tablet Take 75 mg by mouth 1 (one) time each day Active gabapentin (NEURONTIN) 100 MG capsule Take 100 mg by mouth in the morning and 100 mg in the evening and 100 mg before bedtime. Active LORazepam (ATIVAN) 0.5 MG tablet Take 0.5 mg by mouth every 6 (six) hours if needed for anxiety Active losartan (COZAAR) 25 MG tablet Take 25 mg by mouth 1 (one) time each day Active meclizine (ANTIVERT) 12.5 MG tablet Take 12.5 mg by mouth 3 (three) times a day if needed for dizziness Active metoprolol tartrate (LOPRESSOR) 50 MG tablet Take 50 mg by mouth in the morning and 50 mg in the evening. Active nitroglycerin (NITROSTAT) 0.[address] 0.4 mg under the tongue every 5 (five) minutes if needed for chest pain Active pantoprazole (PROTONIX) 40 MG EC tablet Take 40 mg by mouth 1 (one) time each day before breakfast Do not crush, chew, or split. Active rosuvastatin (CRESTOR) 40 MG tablet Take 40 mg by mouth 1 (one) time each day Active sertraline (ZOLOFT) 100 MG tablet Take 100 mg by mouth 1 (one) time each day Active torsemide (DEMADEX) 20 MG tablet Take 20 mg by mouth 1 (one) time each day Active Active Problems Problem Noted Date Diagnosed Date Anemia 04/08/2024 Vitamin D deficiency 04/21/2022 Overview (04/08/2024): Last Assessment & Plan: Unclear if stable, check lab Acute on chronic systolic heart failure 03/09/20 21 Overview (09/05/2024): Last Assessment & Plan: The patient has been advised to monitor her weight daily and to contact us if she experiences a weight gain of more than 3 pounds. Essential hypertension 08/05/2017 Overview (04/08/2024): Last Assessment & Plan: Stable, BP well controlled on current regimen. Continues on losartan, metoprolol and torsemide. Type 2 diabetes mellitus 08/05/2017 Overview (09/05/2024): Last Assessment & Plan: T2DM, metformin now on hold due to renal status. An A1c test will be conducted. MCR done last month high 406, new referral pending for nephrology consult. Atrial fibrillation 10/12/2016 Overview (09/05/2024): Last Assessment & Plan: Hx PAF, now s/p watchman procedure (03/08/2023), off warfarin, now on Plavix and baby aspirin. Encounters Date Type Department Care Team Description 11/13/2024 4:30 PM EST Office Visit [facility] [address] [place] [address] Eric Saavedra MD Stage 3a chronic kidney disease (HCC) (Primary Dx) 10/11/2024 Documentation Only [facility] [address] [place] [address] Leonie Thomas MA 10/11/2024 Documentation Only [facility] [address] [place] [address] Leonie Thomas MA 10/11/2024 Documentation Only [facility] [address] [place] [address] Leonie Thomas MA from Last 3 Months Immunizations Name Administration Dates Next Due Influenza (IM) Preservative Free 07/28/2016,06/11 Influenza Split Preservative Free ID 05/07/2013 Influenza, Quadrivalent, Pre servative Free 06/06/2019,06/11/2018 Influenza, Unspecified 06/19/2023,2022,06/22/2022,07/22,05/11/2020,06/11/2019,07/07/2011 Moderna SARS-COV-2 09/01/2021,01/21/2021, 021 PPD Test 02/06/2024,02/06/2024 Pneumococcal Conjugate 13-Valent 07/04/2018 Pneumococcal Polysaccharide 06/18/2019, 6 Respiratory Syncytial Virus (Rsv), Unspecified 02/16/2024 Tdap 06/10/2020,11/28/2007,11/28/2007 Social History Tobacco Use Types Packs/Day Years Used Date Smoking Tobacco: Never Assessed Comments Unknown Sex and Gender Information Value Date Recorded Sex Assigned at Not on file Legal Sex Female 5:12 PM EST Gender Identity Not on file Sexual Orientation Not on file Plan of Treatment Health Maintenance Due Date Last Done Comments Breast Cancer Screening 1955 Colorectal Cancer Screening: Annual FOBT 2004 Colorectal Cancer Screening: Colonoscopy 2004 Colorectal Cancer Screening: Sigmoidoscopy 2004 Diabetes: Hemoglobin A1C 02/10/2024 Diabetes: Ophthalmology Exam 02/10/2024 Diabetes: Pedal Pulse Checked 02/10/2024 Diabetes: Sensory Foot Exam 02/10/2024 Diabetes: Visual Foot Exam 02/10/2024 Pneumococcal Vaccine: 65+ Years (4 of 4 - PPSV23 or PCV20) 06/18/2024 06/18/2019, 07/04/2018, 10/26/2015 Influenza Vaccine (Season Ended) 2025 06/19/2023, 03/19/2023, 06/22/2022, Additional history exists Hepatitis B Vaccine Aged Out No longe r eligible based on patient's age to complete this topic Insurance [facility] MEDICARE Care Teams Automatic Developer Relationship Specialty Start Date End Date Olamide Lyle NP [address] [place] [address], [address] [place] [address] PCP - General Nurse Practitioner 03/04/24
--- OUTSIDE RECORDS SUMMARY | 2024-12-16 14:31 | XMS_ITS | Encounter Summary ---
Author Organization [facility], Address [address] [place] [address] Phone Care Team Providers Care Card Hanger Name Role Phone Olamide Lyle NP Primary Care Provider [phone]- [phone] Encounter Details Date Type Department Care Team (Late st Contact Info) Description 02/29/2024 Documentation Only [facility], [address] [place] [address] Lashawn Cruz [address] [place] [address] Social History Tobacco Use Types [...] on filedocumented in this encounter Care Teams Card Hanger Relationship Specialty Start Date End Date Olamide Lyle NP [address] [place] [address], [address] [place] [address] PCP - General Nurse Practitioner 03/04/24 documented as of this encounter
--- OUTSIDE RECORDS SUMMARY | 2024-12-16 14:31 | XMS_ITS | Encounter Summary ---
Author Organization [facility], Address [address] [place] [address] Phone Care Team Providers Care Beam Warper Name Role Phone Olamide Lyle NP Primary Care Provider [phone]- [phone] Encounter Details Date Type Department Care Team (Late st Contact Info) Description 04/08/2024 Documentation Only [facility], [address] [place] [address] Haleigh Almazna [address] [place] [address] Social History Tobacco Use Types [...] on filedocumented in this encounter Care Teams Beam Warper Relationship Specialty Start Date End Date Olamide Lyle NP [address] [place] [address], [address] [place] [address] PCP - General Nurse Practitioner 03/04/24 documented as of this encounter
--- OUTSIDE RECORDS SUMMARY | 2024-12-16 14:31 | XMS_ITS | Data Portability ---
Author Organization [facility], Main Office Address [address] [address] [address] [place] [address] Care Team Providers Care Associate Name Role Phone CAREONE (NONO UNIT) OTHER Assessment Encounter Date Assessment Date Assessment LastModified by Organization Details LastModified Time 02/12/2024 02/12/202402/06 na 138 k 3.3 cre 1.8 bun 69 wbc 12.97 hgb 9.74 hct 31.7 [email or web address] Not available 02/12/2024 11:23:12 02/13/2024 02/13/202402/06 na [...] 10 hct 34 5/28 wbc=11.1 hb=10.5 cre=2.15 [email or web address] Not available 02/19/2024 11:50:45 02/21/2024 02/21/202402/06 na [...] Organization Details Recorded Time Irritable bowel syndrome 05221994 Active 2023 [facility] [address], [address], [facility] 12:54:58 Obstructive sleep apnea syndrome 98552710 Active 2023 [facility] , [address], [place], [address], [facility] 4 12:55:01 Congestive heart failure 81334480 Active 2023 [facility] , [address], [place], [address], [facility] 4 12:55:05 Mixed anxiety and depressive disorder 397825069 Active 2023 [facility] , [address], [place], [address], [facility] 4 12:55:19 Falls 363099515 Active [address] [facility] [address] [facility] [address], [place], [address], [facility] 4 12:55:23 Anemia 793890283 Active 2023 [facility] [address], [address], [place], [address], [facility] 4 12:55:28 Fibromyalgi a 704881800 Active 2023 [facility] [address], [address], [place], [address], [facility] 4 12:55:33 Hypercholes terolemia 14693530 Active [address], [address], [place], [address], [facility] 4 12:55:39 Essential hypertensio n 10366875 Active [address], [place], [address], [facility] 4 12:55:45 Coronary arterioscle rosis 22355094 Active [address], [address], [place], [address], [facility] 4 12:55:59 Diabetes mellitus 26177673 Active [address] , [address], [place], [address], [facility] 4 12:56:02 Aortic valve stenosis 01639251 Active [address], [address], [place], [address], [facility] 4 12:56:26 Asthma 673957305 Active 2023 [facility] [address], [address], [place], [address], [facility] 4 12:56:34 Atrial fibrillatio n 48175811 Active 2023 IRA LORD [address], [address], [place], [address], [facility] 4 12:56:39 Malignant tumor of cervix 282797449 Active 2023 IRA LORD [address], [address], [place], [address], [facility] [employer] [employer] 4 12:56:51 Morbid obesity 708806608 Active 2023 IRA LORD [address], [address], [place], [address], [facility] [employer] [facility] 4 12:57:07 Acute nontraumati c kidney injury 7652425654691 03 Active 2023 IRA LORD [address], [address], [place], [address], [facility] 4 13:27:11 Problem Notes None recorded. Procedures Surgical History Date Name Laterality Status Provider Name and Address Organization Details Recorded Time total replacement of right knee joint completed IRA LORD [address], [address], [place], [address], [facility] 02/07/2024 12:58:[address] delivery completed IRA LO [address], [address], [place], [address], [facility] [employer] [facility] 02/07/2024 12:58:42 Appendectomy completed IRA LORD [address], [address], [place], [address], [facility] [employer] [facility] 02/07/2024 12:58:50 Imaging Results None recorded. Procedure Notes None recorded. Medical Equipment None Reported. Allergies Allergen ID Allergen Name Allergen Category Reaction Reaction Severity Criticality Documentation Date Start Date Code Code System Note Provider Name and Address Organization Details Recorded Time 73923 Bactrim medicatio n Not available Not available Not available 02/07/2024 67611 9 RxNorm Not Available Not Available Not Available 33647 Keflex medicatio n Not available Not available Not available 02/07/2024 33912 7 RxNorm Not Available Not Available Not Available 25389 clindamyc in Not available Not available Not available Not available 02/07/2024 2582 RxNorm Not Available Not Available Not Available 35950 gabapenti n medicatio n Not available Not available Not available 02/07/2024 93866 RxNorm Not Available Not Available Not Available 23761 hydrochlo rothiazid e medicatio n Not available Not available Not available 02/07/2024 5487 RxNorm Not Available Not Available Not Available 25596 Product containin g penicilli n (product) medicatio n Not available Not available Not available 02/07/2024 33673 8001 SNOMED Not Available Not Available Not Available 99937 Product containin g 3-hydroxy -3-methyl glutaryl- coenzyme A reductase inhibitor (product) medicatio n Not available Not available Not available 02/07/2024 76287 009 SNOMED Not Available Not Available Not Available Medications Not known to be on any medication Vitals Date Recorded Body temperature Heart rate Systolic blood pressure Diastolic blood pressure Provider Name and Address Organization Details Last Updated DateTime 02/12/2024 97.8 [degF] 78 /min 127 mm[Hg] 56 mm[Hg] IRA L OR[address] , [address], [address] , [facility] 02/12/2024 08:48:06 Date Recorded Body weight Systolic blood pressure Diastolic blood pressure Provider Name and Address Organization Details Last Updated DateTime 02/13/2024 234283.51 g 151 mm[Hg] 56 mm[Hg] IRA LORD [address], [address] [place] [address], [address], [facility] 02/13/2024 11:02:26 Date Recorded Body temperature Heart rate Systolic blood pressure Diastolic blood pressure Provider Name and Address Organization Details Last Updated DateTime 02/21/2024 97.4 [degF] 68 /min 150 mm[Hg] 56 mm[Hg] IRA L ORD [address], [address] [place] [address], [address] , [facility] 02/21/2024 09:15:36 Date Recorded Body weight Provider Name an d Address Organization Details Last Updated DateTime 02/23/2024 31199.32 g IRA LORD [address], [address] [place] [address], [address], [facility] 02/23/2024 09:28:17 Social History None recorded. Functional Status None recorded. Mental Status None recorded. Family History Nothing Reported. Medical History No medical history recorded. Gynecological HistoryNo gynecological history recorded. Obstetrics History GPAL:G 0 P 0 0 0 0 Immunizations Vaccine Type Date Status Note Provider Miky e and Address Organization Details Recorded Time Tdap 0 completed [facility] 02/09/2024 16:00:40 Pneumococcal conjugate PCV 13 8 completed [facility] 02/09/2024 16:00:54 pneumococcal polysaccharide PPV23 9 completed [facility] 02/09/2024 16:01:09 influenza, unspecified formulation 2 completed [facility] 02/09/2024 16:01:29 influenza, unspecified formulation 3 completed [facility] 02/09/2024 16:01:37 SARS-COV-2 (COVID-19) vaccine, UNSPECIFIED 1 completed [facility] 02/09/2024 16:01:57 SARS-COV-2 (COVID-19) vaccine, UNSPECIFIED 1 completed [facility] 02/09/2024 16:02:07 SARS-COV-2 (COVID-19) vaccine, UNSPECIFIED 1 completed [facility] 02/09/2024 16:02:14 Past Encounters Encounter ID Performer Location Encounter Start Date Encounter Closed Date Diagnosis/Indication Diagnosis SNOMED-CT Code Diagnosis ICD10 Code Diagnosis Note [id number] IRA Morelteddy at [facility] on [address] [place] [address] 02/07/2024 12:07:54 02/09/2024 11:05:42 Congestive heart failure 71224401 I50.9 losartan dailydaily weightsif weight gain of [address] torsemide 40 mg daily back on regimenfol low up with cardsmetop rolol 100 mg daily Diabetes mellitus 636766 09 E11.9 was on metformin 500 mg dailymonit or sugars and kidneysres ume if neededlisp ro with SS Acute nont raumatic kidney injury 3854453501 95965 N17.9 baseline creat 1.2-1.3fol low up with nephro outptlosar anderson 25 mg to start 02/08monito r need to start torsemide [place] 113149884 R29.6 with weaknessPT /OT eval and treat Coronary arteriosclerosis 13545027 I25.10 continueas a dailyplavi x 75 mg dailyrosou vastatin daily Atrial fibrillation 4943 6004 I48.91 s/p watchmanco ntinue metoprolol dailymonit or rate Fibromyalgia 494212401 M 79.7 continue gabapentin 100 mg qhsmonitor pain control Essential hypertension 87541259 I10 continue bp meds abovemonit or bps Irritable bowel syndrome 54425341 K58.9 incontinen t at baselinemo nitor bowels Mixed anxi ety and depressive disorder 068167101 F41.8 sertraline 150 mg dailymonit or mood Obstructiv e sleep apnea syndrome 68094806 G47.33 not on CPAP [id number] IRA Murguia at [facility] on [address] [place] [address] 02/09/2024 10:44:41 02/15/2024 15:21:43 Leukocytosis 111415702 D72.829 12.79compl aints of dysuriaadd urine reflex via straight cath [id number] Haile Garcia MD [facility] on [address] [place] [address] 02/11/2024 13:08:26 02/15/2024 15:33:56 Congestive heart failure 61937854 I50.43 see HPInow ontorsemid e 40 mg to be taken if weight increases > 3 lbspatient is getting daily weightscur rently up 1.4 lbs since admitorder for torsemide added Acute nont raumatic kidney injury 6497127582 19103 N17.8 see HPIARF on CRFmonitor renal function with torsemide to be given prn for weight gainmonito r renal functionav oid nephrotoxi c meds as ableto f/u with nephroupda te with concernsre peat BMP in am Diabetes mellitus 311221 09 E11.9 continue out patient medsmonito r need to titratemet formin d/c'ed [place] 038880735 R29.6 PT OT Eval and treatmonit or fall risk and need for increased support in community Coronary arteriosclerosis 46500292 I25.10 hx of s/p CABGmetopr olol 100 mg qdasa 81 mg qdplavix 75 mg qdrosuvast atin 40m g qdmonitor for sx Atrial fibrillation 4943 6004 I48.0 hx of watchman procedurem etoprolol 100 mg qdmonitor for rate control Essential hypertension 60673291 I10 metoprolol 100 mg qdlosartan 25 mg qdmonitor bp and need to titrate Irritable bowel syndrome 51626412 K58.9 carrying dx added to PMH Mixed anxi ety and depressive disorder 555782096 F41.8 zoloft 150 mg qdmonitor for effect Obstructiv e sleep apnea syndrome 90225079 G47.33 carrying dx not on cpap [id number] IRA CHAPMAN Shantal at [facility] on [address] [place] [id number] 02/12/2024 08:45:06 02/15/2024 15:57:04 Congestive heart failure 46525337 I50.43 see HPIcurrent ly up 5.4 lbs since admissiong iven 1 dose of torsemide this am-start torsemide 40 mg PO DAILY x 3 days-maverick nue daily weights-BM P ordered for today-nicholas tor fluid status closely Acute nont raumatic kidney injury 0241827498 90097 N17.8 see HPIARF on CRF 02/06 cre 1.8 BUN 69monitor renal function with torsemide X 3 doses-avoi d nephrotoxi c meds as able-to f/u with nephro-upd ate with concerns-r epeat BMP today [place] 299240118 R29.6 -PT OT Eval and treat-nicholas tor fall risk and need for increased support in community Diabetes mellitus 574687 09 E11.9 BS 103-metfor min d/c'ed-sto p accuchecks [id number] IRACARLTIA Murguia at [facility] on [address] [place] [id number] 02/13/2024 09:10:39 02/15/2024 16:07:26 Congestive heart failure 46956680 I50.43 see HPIcurrent ly up 5.4 lbs since admissionS tarted diuresing with torsemide yesterday- continue torsemide 40 mg PO DAILY x 3 days (end date: 02/15)-monit or daily weights-mo nitor fluid status closely Acute nont raumatic kidney injury 3216667607 13879 N17.8 ARF on CRF 02/06 cre 1.8 BUN 69kidney functionin g 02/11 cre 1.3 BUN 29monitor renal function with torsemide X 3 doses-avoi d nephrotoxi c meds as able-to f/u with nephro-upd ate with concerns-r epeat BMP next week [place] 053110657 R29.6 continue PT-monitor fall risk and need for increased support in community [id number] IRA Murguia at [facility] on [address] [place] [id number] 02/19/2024 14:02:28 02/22/2024 11:35:54 Congestive heart failure 14118143 I50.43 see HPIcurrent ly up 8 lbs since admissionD iuresed with torsemide 40 mg po daily x 3 days (end date: 02/15)wt continues to rise and she appears overloaded -CBC/ BMP tomorrow. add pro BNP-restar t torsemide 40 mg po daily x 3 days-monit or daily weights-mo nitor fluid status closely Acute nont raumatic kidney injury 0906481221 18597 N17.8 ARF on CRF 02/06 cre 1.8 BUN 69improvin cre 1.3 BUN 29monitor renal function with torsemide X 3 doses-avoi d nephrotoxi c meds as able-to f/u with nephro-upd ate with concerns-C BC/BMB tomorrow [place] 620162230 R29.6 continue PT-monitor fall risk and need for increased support in community [id number] IRA Murguia [facility] on [address] [place] [id number] 02/21/2024 09:14:28 02/23/2024 15:13:07 Congestive heart failure 02652088 I50.43 see HPIcurrent ly up 10 lbs since admissioni ncrease torsemide to 80 mg BID- re-eval monday-mon itor daily weights-mo nitor fluid status closely Acute nont raumatic kidney injury 1222490084 77065 N17.8 ARF on CRF 02/06 cre 1.8 BUN 69improvin g6/11 cre 1.2 BUN 18-avoid nephrotoxi c meds as able-to f/u with nephro [id number] IRA Morelteddy at [facility] on [address] [place] [address] 02/23/2024 09:25:30 02/28/2024 10:22:25 Congestive heart failure 35901050 I50.43 Now back down 7 lbsdecreas e torsemide to 40 mg daily-nciholas tor daily weights at home-monit or fluid status closelyWEI GH DAILY AT HOME, INCREASE TORSEMIDE IF WEIGHT INCREASES MORE THAN 3 LBS Acute nont raumatic kidney injury 6606442102 21797 N17.8 ARF on CRF 02/06 cre 1.8 BUN 69-avoid nephrotoxi c meds as able-to f/u with nephro [place] 778673810 R29.6 VNA at home will continue PT Diabetes mellitus 995197 09 E11.9 BS 103-metfor min d/c'ed Coronary arteriosclerosis 89182527 I25.10 continueas a dailyplavi x 75 mg dailyrosuv astatin daily Atrial fibrillation 4943 6004 I48.91 s/p watchmanco ntinue metoprolol daily Fibromyalgia 602797122 M 79.7 continue gabapentin 100 mg qhs Essential hypertension 33661859 I10 continue bp meds above Irritable bowel syndrome 34596997 K58.9 incontinen t at baseline Mixed anxi ety and depressive disorder 486333964 F41.8 sertraline 150 mg daily Obstructiv e sleep apnea syndrome 40946373 G47.33 not on CPAP Health Concerns Section Related Observation LastModified by Organization Detai ls LastModified Time None Recorded Concern Status LastModified by Organization Details LastModified Time None Recorded Advance Directives Directive None Recorded Payers Encounter Date Sequence Insurance Name Policy Number Policy Nichols Covered Member ID Nichols Member ID Guarantor Name 02/12/2024 1 [place] [employer] Risa Cisneros [id number] Risa Cisneros 02/12/2024 2 [employer] OPTIONS (MEDICARE SUPPLEMENT) Risa Cisneros [id number] Risa Cisneros 02/13/2024 1 [place] [facility] Risa Cisneros [id number] Risa Cisneros 02/13/2024 2 [employer] OPTIONS (MEDICARE SUPPLEMENT) Risa Cisneros [id number] Risa Cisneros 02/19/2024 1 [place] [facility] Risa Cisneros [id number] Risa Cisneros 02/19/2024 2 [employer] OPT[employer] (MEDICARE SUPPLEMENT) Risa Cisneros [id number] Risa Cisneros 02/21/2024 1 [place] [facility] Risa Cisneros [id number] Risa Cisneros 02/21/2024 2 [employer] OPTIONS (MEDICARE SUPPLEMENT) Risa Cisneros [id number] Risa Cisneros 02/23/2024 1 [place] [facility] Risa Cisneros [id number] Risa Cisneros 02/23/2024 2 [employer] (MEDICARE SUPPLEMENT) Risa Cisneros [id number] Risa Cisneros Notes Date Note Type Note [...] continue diuresing. Continue daily weights IRA CHAPMAN [address] [place] [address], [address], [place], [address], [facility] 02/12/2024 12:01:38 02/13/2024 text/html Patient is a [...] just received her am meds. IRA CHAPMAN [address] [place] [address], [address], [place], [address], [facility] 02/13/2024 11:03:20 02/19/2024 text/html Patient is a [...] Maintaining sats 95/97% on RA. IRA CHAPMAN [address] [place] [address], [address], [place], [address], [facility] 02/19/2024 14:04:57 02/21/2024 text/html Patient is a [...] monday and try to diurese. IRA CHAPMAN [address] [place] [address], [address], [place], [address], [facility] 02/21/2024 09:35:15 02/23/2024 text/html Patient is a [...] LBS SHOULD TITRATE TORSEMIDE DOSING. IRA CHAPMAN [address] [place] [address], [address], [place], [address], [facility] 02/23/2024 09:56:21 OBGyn Episode No OBEpisode recorded.
[2024-12-16 16:14] LABS: MANUAL DIFF FLAG NO
[2024-12-16 16:16] LABS: Basophils Percent Auto 0.4 % (0-2); Eosinophils Absolute Auto 0.1 X10*3/uL (0.0-0.4); Eosinophils Percent Auto 1.1 % (0-4); Hematocrit 32.2 % (37.0-47.0); Hemoglobin 10.2 g/dl (12.0-16.0); Imm Gran Abs Auto 0.03 X10*3/uL (0.00-0.03); Imm Gran Pct Auto 0.4 % (0.0-0.4); Lymphocytes Absolute Auto 1.2 X10*3/uL (1.2-4.9); Lymphocytes Percent Auto 13.7 % (20-40); Mean Corpuscular HGB Conc 31.7 g/dl (31.0-35.0); Mean Corpuscular Hemoglobin 26.6 pg (27.0-33.0); Mean Corpuscular Volume 84.1 fL (80.0-98.0); Mean Platelet Volume 9.9 fL (9.4-12.3); Monocytes Absolute Auto 0.5 X10*3/uL (0.1-1.2); Monocytes Percent Auto 5.8 % (2-11); Neutrophils Absolute Auto 6.6 x10*3/uL (2.0-8.3); Neutrophils Percent Auto 78.6 % (45-73); Platelet Count 254 X10*3/uL (160-400); Red Blood Count 3.83 X10*6/uL (4.20-5.50); Red Cell Distribution Width 16.6 % (11.0-16.0); White Blood Count 8.4 X10*3/uL (4.8-10.8)
[2024-12-16 16:28] LABS: INTERNATIONAL NORM RATIO 0.9 (0.9-1.1); Prothrombin Time 10.9 SEC (10.9-12.4)
[2024-12-16 19:17] LABS: Anion Gap 15 (12-20); Blood Urea Nitrogen 32 mg/dL (9-16); Calcium 9.8 mg/dL (8.4-10.2); Carbon Dioxide 26 mmol/L (22-29); Chloride 103 mmol/L (96-108); Estimated Glomerular Filt Rate 40; Glucose Random 107 mg/dL (60-115); Potassium 3.9 mmol/L (3.3-5.1); Sodium 140 mmol/L (135-145)
== END 2024-12-16 12:03 | disposition home or self-care (01) ==
LOC: HO.HMGCLDS 12:02
PROVIDERS: PCP Nurse Practitioner Family; Visit Provider Student in an Organized Health Care Education/Training Program
DX: Z01.810 Encounter for preprocedural cardiovascular examination (principal); R94.39 Abnormal result of other cardiovascular function study
CPT/HCPCS: 36415; 80048; 85025; 85610

== ENCOUNTER 2024-12-19 13:15 | Outpatient (REF) | payer MEDICARE, SELFPAY ==
[2024-12-19 16:05] LABS: Appearance Urine Clear; Color Urine Yellow; Glucose Urine UA Negative (Negative); Leukocyte Esterase Urine Trace (Negative); Nitrite Urine Negative (Negative); PH 5.5 (5.0-9.0); Specific Gravity - Urine 1.015 (1.005-1.025); UMIC TRIGGER UA YES; Urine Blood Negative (Negative); Urine Ketones Negative (Negative); Urine Protein Negative (Neg-Trace)
[2024-12-19 16:17] LABS: Bacteria Urine None Seen (None Seen); RBC Urine 0-2 /HPF (0-2); Squamous Epithelial Cell Urine 0-2 /HPF (0-2); WBC Urine 0-5 /HPF (0-5)
--- OUTSIDE RECORDS SUMMARY | 2024-12-19 16:31 | XMS_ITS | Encounter Summary ---
Author Organization [facility], Address [address] [place] [address] Phone Care Team Providers Care Plant Clerk Name Role Phone Olamide Lyle NP Primary Care Provider [phone]- [phone] Encounter Details Date Type Department Care Team (Late st Contact Info) Description 10/11/2024 Documentation Only [facility], [address] [place] [address] Leonie Thomas [place] [address] [place] [address] Social History Tobacco Use Types [...] on filedocumented in this encounter Care Teams Plant Clerk Relationship Specialty Start Date End Date Olamide Lyle NP [address] [place] [address], [address] [place] [address] PCP - General Nurse Practitioner 03/04/24 documented as of this encounter
--- OUTSIDE RECORDS SUMMARY | 2024-12-19 16:31 | XMS_ITS | Encounter Summary ---
Author Organization [facility], Address [address] [place] [address] Phone Care Team Providers Care Excellence Consultant Name Role Phone Olamide Lyle NP Primary Care Provider [phone]- [phone] Encounter Details Date Type Department Care Team (Late st Contact Info) Description 10/11/2024 Documentation Only [facility], [address] [place] [address] Leonie Thomas [place] [address] [place] [address] Social History Tobacco Use Types [...] on filedocumented in this encounter Care Teams Excellence Consultant Relationship Specialty Start Date End Date Olamide Lyle NP [address] [place] [address], [address] [place] [address] PCP - General Nurse Practitioner 03/04/24 documented as of this encounter
--- OUTSIDE RECORDS SUMMARY | 2024-12-19 16:31 | XMS_ITS | Encounter Summary ---
Author Organization [facility], Address [address] [place] [address] Phone Care Team Providers Care All Round Butcher Name Role Phone Olamide Lyle NP Primary Care Provider [phone]- [phone] Encounter Details Date Type Department Care Team (Late st Contact Info) Description 10/11/2024 Documentation Only [facility], [address] [place] [address] Leonie Thomas [place] [address] [place] [address] Social History Tobacco Use Types [...] on filedocumented in this encounter Care Teams All Round Butcher Relationship Specialty Start Date End Date Olamide Lyle NP [address] [place] [address], [address] [place] [address] PCP - General Nurse Practitioner 03/04/24 documented as of this encounter
--- OUTSIDE RECORDS SUMMARY | 2024-12-19 16:32 | XMS_ITS | Encounter Summary ---
Author Organization [facility], Address [address] [place] [address] Phone Care Team Providers Care Pallet Stone Positioner Name Role Phone Olamide Lyle NP Primary Care Provider [phone]- [phone] Encounter Details Date Type Department Care Team (Late st Contact Info) Description 04/08/2024 Documentation Only [facility], [address] [place] [address] Haleigh Almanza [address] [place] [address] Social History Tobacco Use Types [...] on filedocumented in this encounter Care Teams Pallet Stone Positioner Relationship Specialty Start Date End Date Olamide Lyle NP [address] [place] [address], [address] [place] [address] PCP - General Nurse Practitioner 03/04/24 documented as of this encounter
--- OUTSIDE RECORDS SUMMARY | 2024-12-19 16:32 | XMS_ITS | Continuity of Care Document ---
Author Organization [facility] ter Address [address] [place] [id number]- Care Team Providers Care Senior Game Advisor Name Role Phone Not on Staff, PCP Primary Care Physician Unavail able [place] [facility] [place]18[place] - 12/18/[address] [address]- Discharge Disposition: A-D/C Home Attending Physician: Alli Krishna MD Admitting Physician: Alli Krishna MD Referring Physician: Alli Krishna MD Encounter Type: Disch Daystay Allergies, Adverse Reactions, Alerts Substance Criticality Severity Reaction Reaction Severity Status penicillin DIFFICULTY BREATHING rash Active hydrochlorothiazide body aches Active Lipitor muscle aches Active Bactrim upset stomach Active Milk Products gi upset Active Immunizations Given and Recorded Vaccine Date Status Refusal Reason SARS-CoV-2 (COVID-19) mRNA-1273 vaccine 09/01/21 R ecorded SARS-CoV-2 (COVID-19) mRNA-1273 vaccine 01/21/21 R ecorded SARS-CoV-2 (COVID-19) mRNA-1273 vaccine 12/23/20 R ecorded pneumococcal 23-valent vaccine 10/26/15 Given Tet/Diphth/Acel, Pertussis (oldterm) 11/28/07 Give n Medications aspirin 81 mg oral delayed release tablet 81 mg, By Mouth, Daily, # 90 tablet, Refills 3, Tot. Refills 3, Maintenance, 03/08/23 11:18:00 AM EDT, Route to Pharmacy Electronically, [facility], Partial fill upon patient request if the prescription is for a schedule II opioid drug., 158, cm, 06/28/23 7:50:00 EDT, Height, 110.5,kg, 03/08/23 7:50:00 EDT, Dry Weight Start Date: 03/08/23 Stop Date: 03/02/24 Status: Ordered Quantity: 90.0 Unit: tablet Repeat number: 4 clopidogrel 75 mg oral tablet 75 mg, 1, tablet, By Mouth, Daily, # 30 tablet, Refills 0, Maintenance, 02/01/24 10:51:00 AM EDT, Partial fill upon patient request if the prescription is for a schedule II opioid drug. Start Date: 02/01/24 Status: Ordered Quantity: 30.0 Unit: tablet Repeat number: 1 gabapentin 100 mg oral capsule TAKE 1 CAPSULE BY MOUTH NIGHTLY AT BEDTIME Start Date: 03/08/23 Status: Ordered Repeat number: 1 losartan 25 mg oral tablet 25 mg, 1, tablet, By Mouth, Daily, # 30 tablet, Refills 0, Maintenance, 06/08/24 3:20:00 PM EDT, Partial fill upon patient request if the prescription is for a schedule II opioid drug. Start Date: 06/08/24 Status: Ordered Quantity: 30.0 Unit: tablet Repeat number: 1 Metoprolol Succinate ER 100 mg oral tablet, extended release 1 tablet = 100 mg, By Mouth, Daily, # 90 tablet, 0 Refills, Maintenance, 02/06/24 3:41:00 PM EDT, ERTablet, Partial fill upon patient request if the prescription is for a schedule II opioid drug. Start Date: 02/06/24 Status: Ordered Quantity: 90.0 Unit: tablet Repeat number: 1 nitroglycerin 0.4 mg sublingual tablet = 0.4 mg, Sublingual, Every 5 minutes, PRN Chest Pain, # 100 tablet, 0 Refills, Maintenance, 04/10/23 1:23:00 PM EDT, Tablet, [facility], Partial fill upon patient request if the prescription is for a schedule II opioid drug., 157.4, cm, 04/09/23 17:56:00 EDT, Height, 110.8, kg, 04/07/23 10:20:00 EDT, Dry Weight Start Date: 04/10/23 Status: Ordered Quantity: 100.0 Unit: tablet Repeat number: 1 pantoprazole 40 mg oral delayed release tablet = 40 mg, By Mouth, 2 times a day, # 30 tablet, 1 Refills, Maintenance, 12/04/22 2:16:00 PM EDT, EC Tablet, 158, cm, 12/04/22 11:47:00 EDT, Height, 115.7, kg, 12/03/22 23:17:00 EDT, Dry Weight Start Date: 12/04/22 Status: Ordered Quantity: 30.0 Unit: tablet Repeat number: 2 rosuvastatin 40 mg oral tablet 1 tablet = 40 mg, By Mouth, Daily, # 90 tablet, 0 Refills, Maintenance, 04/10/23 1:23:00 PM EDT, Tablet, [facility], Partial fill upon patient request if the prescription is for a schedule II opioid drug., 157.4, cm, 04/09/23 17:56:00 EDT, Height, 110.8, kg, 04/07/23 10:20:00 EDT, Dry Weight Start Date: 04/10/23 Status: Ordered Quantity: 90.0 Unit: tablet Repeat number: 1 sertraline 50 mg oral tablet = 150 mg, By Mouth, Daily, 0 Refills, Maintenance, 02/06/24 3:43:00 PM EDT, Tablet, Partial fill upon patient request if the prescription is for a schedule II opioid drug. Start Date: 02/06/24 Status: Ordered Repeat number: 1 torsemide 20 mg oral tablet See Instructions, 2 tablet Daily if weight > 3 pounds. Monitor weight daily Start Date: 02/01/24 Status: Ordered Repeat number: 1 Problem List Condition Confirmation Course Effective Dates Status Health Status Informant Adjustment Disorder with Mixed Anxiety and Depressed Mood Confirmed Active Anemia Confirmed Active Aortic stenosis Confirmed Active Asthma Confirmed Active Atrial fibrillation, chronic Confirmed Active Chronic systolic CHF (congestive heart failure) Confirmed Active Claustrophobia Confirmed Active CAD (coronary artery disease) Confirmed Active Diabetes mellitus Confirmed Active ZHANG (dyspnea on exertion) Confirmed Active Fibromyalgia Confirmed Active Heart murmur Confirmed Active H/O heart block Confirmed Active Hypercholesterolemia Confirmed Active Hyperglycemia Confirmed Active Idiopathic hypersomnolence Confirmed Active Hypertension Confirmed Active IBS (irritable bowel syndrome) Confirmed Active Endometrioid adenocarcinoma Confirmed Active Cervical cancer Confirmed Active Morbid obesity, actual BMI 47.78 as of 10/19/2016 Confirmed 05/19/15 Active Obesity monitoring status Confirmed Active Obstructive sleep apnea syndrome Confirmed Active KELVIN on CPAP Confirmed Active OA (osteoarthritis), kneees Confirmed Active Severe obesity (BMI 35.0-39.9) with comorbidity Confirmed Active Syncope Confirmed Active Non-insulin treated type 2 diabetes mellitus Confirmed Active Vaginal bleeding Confirmed Active Vital Signs Most recent to oldest [Reference Range]: 1 2 3 Height 157.48 cm (12/18/24 12:02 PM) Weight 97.9 kg (12/18/24 12:02 PM) Oxygen Saturation [94-100 %] 98 % (12/18/24 5:49 PM) 98 % (12/18/24 5:45 PM) 96 % (12/18/24 5:30 PM) Pulse Rate [55-90 bpm] 65 bpm (12/18/24 12:02 PM) Body Mass Index [18.5-24.99 kg/m2] 39.48 kg/m2 *>HHI* (12/18/24 12:02 PM) Blood Pressure [90-138/55-84 mm Hg] 92/50mm Hg (12/18/24 5:49 PM) 110/41mm Hg (12/18/24 5:00 PM) 93/47mm Hg (12/18/24 4:45 PM) Respiratory Rate [16-30 br/min] 16 br/min (12/18/24 5:49 PM) 14 br/min *L* (12/18/24 5:45 PM) 16 br/min (12/18/24 5:30 PM) Temperature [96.8-100.4 DegF] 98.5 DegF (12/18/24 12:02 PM) Mode of Delivery (Oxygen) Room air (12/18/24 5:45 PM) Room air (12/18/24 5:30 PM) Room air (12/18/24 5:15 PM) Blood pressure sites Arm, right (12/18/24 12:02 PM) Temperature Route Temporal (12/18/24 12:02 PM) Social History Social History Type Response Smoking Status Former smoker; Other : quit 27 years ago (07/2017); up to 3 ppd for 20 years; entered on: 07/25/17 Sex Sex Representation Female (finding) Implantable Device List Procedure Provider Procedure Date Device Type Site Unknown Unknown 11/04/16 Unknown Chest Device Identifier Serial Number Lot or Batch Number Manufacturing Date Expiration Date Distinct Identification Code MRI Safety Implantable Status Assigning Authority Unknown Unknown Unknown Unknown Unknown Unknown MR Condnidhi onal Active Unknown Note * Event Display: Hemodynamic Procedure Report Authored Date: * Nereida Grayson RN: PERFORM Event Display: Discharge/Transfer Note Hospital Authored Date: [id number] Nursing Discharge Note Entered On: 12/18/2024 19:48 EDT Performed On: 12/18/2024 19:48 EDT by Nereida Grayson RN Nursing Discharge Note 2 Discharge Comments : All d/c instructions reviewed with patient and daughter. both verbalized understanding. Nereida Grayson RN - 12/18/2024 19:53 EDT Discharge Time : 12/18/2024 18:45 EDT Discharge Level of Care at Discharge : Home/Skilled Nursing/Foster Care Patient Left Unit Via : Wheelchair Patient Accompanied Off Unit with : Responsible adult DC Instructions Provided & Signed by Pt : Yes Patient Understands D/C Instructions : Yes Patient Instructions Discharge Signed : Yes Did Pt have Specialty Bed or Wound Vac : No Nereida Grayson RN - 12/18/2024 19:48 EDT * Nereida Grayson RN: PERFORM Event Display: Patient Education/Instruction Authored Date: Inpatient Adult Discharge Instructions. [address] [address] Name: KATERINE TOVAR : 1955?? Visit: 12/18/2024 10:35?? Current Date: 12/18/2024 16:22 ?? Account: [id number]?? Inpatient Adult Discharge Instructions We would like to thank you for allowing us to assist you with your healthcare needs. The following includes patient education materials and information regarding your injury/illness. Our entire staffstrives to provide an excellent experience for our patients and their families. PLEASE ENSURE YOU FOLLOW-UP PER THE INSTRUCTIONS BELOW! ?? YOUR OPINION IS IMPORTANT TO US! Please complete the survey you may receive by mail or email. Your feedback will be used to make improvements to the healthcare experiences of our patients and their families. Surveys are administered by [employer] ?? If further treatment with your primary care physician or another doctor is recommended, it is important for you to keep the appointment. Call your primary care physician or return to the Emergency Department immediately if your condition worsens, fails to improve, or new symptoms develop. If you need to find a doctor, you can call [facility] Link for a referral at [phone] or toll free at [phone]) or log in to [email or web address].. ?? [facility], in keeping with [facility] guidance, no longer requires face masks for staff, patientsor visitors in most situations. Similiar to time spent indoors at other locations, there is the chance that you were exposed to repiratory viruses during your time with us (such as flu or COVID-19). If you develop symptoms concerning for a viral respiratory infection, please seek testing (and treatment if indicated) from your medical provider or home test kit. ?? You can view and manage your care through the patient portal or by using a health care [facility] of your choosing. [employer] is a website that allows you to securely view your medical information including your hospital discharge summary, office visit summaries, medications and follow-up visits. You can also request appointments, renew medications, and request access to your medical information using a health care [facility] of your choosing, or just ask a question. You are entitled to know the individuals who participated in your treatment. This information is available within your medical record and will be provided upon your request. You can enroll at [email or web address] or register d uring your next office visit. You have been discharged from [facility], Patient Care Unit: CARE??. If you have any questions regarding these instructions, including results of studies pending, afteryou leave, please call us and we will be happy to assist you 03/04. [facility] Nursing Unit Direct Phone Number, for 03/04 contact and results of studies pending [address]ARE [address] [place] [address] Your Care Team Attending Physician Alli Krishna MD?? Consulting Providers Alli Krishna MD?? Discharging Providers Alli Krishna MD Tests Performed Below is a partial list of the tests performed during your hospitalization. You may have had other tests and procedures not included in this list. Please discuss all test results with your provider. Basic Metabolic Panel CBC GLUCOSE POC INR PTT Type and Screen Basic Metabolic Panel?? CBC?? Glucose POC?? INR?? PTT?? Type and Screen?? Primary Care Provider Not on Staff, PCP?? Advance Directive Health Care Proxy on File Yes - Health Care Proxy Discharge Vitals Temperature: 98.5 DegF Height: 157.48 cm Pulse Rate: 65 bpm Weight: 97.9 kg Respiratory Rate:??15 br/min??Low Body Mass Index:??39.48 kg/m2??Critical Systolic Blood Pressure: 113 mm Hg Body surface area: 2.07 Diastolic Blood Pressure: 59 mm Hg ?? Oxygen Saturation: 99 % ?? Studies Pending All studies ordered during this hospital stay have been completed unless listed below. Please discuss all pending results with your provider listed above in these instructions. ?? No incomplete studies found?? What to do next Instructions From Your Doctor ?? Orders?? Daystay Protocol, ??12/18/24 17:00:00 EDT?? You Need to Schedule the Following Appointments Follow Up with??Erendira DELA CRUZ, Alli N When:??Within 2 to 3 weeks Where: [address] [place], [place] [id number]- Discharge Medications KATERINE TOVAR :1955 Visit Date:12/18/2024 Medications: Please continue your medications until treatment is completed or stopped by your provider. Medications not listed below should be discontinued. Discuss any questions related to medications with your provider. What How Much When Instructions Next Dose Unchanged Aspirin (aspirin 81 mg oral delayed release tablet) 81 Milligram Oral Daily Duration: 90 Days tomorrow am Unchanged Clopidogrel (clopidogrel 75 mg oral tablet) 1 tab(s) Oral Daily tomorrow am Unchanged Gabapentin (gabapentin 100 mg oral capsule) TAKE 1 CAPSULE BY MOUTH NIGHTLY AT BEDTIME ?? resume Unchanged Losartan (losartan 25 mg oral tablet) 1 tab(s) Oral Daily resume Unchanged Metoprolol (Metoprolol Succinate ER 100 mg oral tablet, extended release) 1 tab(s) Oral Daily resume Unchanged Nitroglycerin (nitroglycerin 0.4 mg sublingual tablet) 0.4 Milligram Sublingual Every 5 minutes as needed for Chest Pain as needed Unchanged Pantoprazole (pantoprazole 40 mg oral delayed release tablet) 40 Milligram Oral Twice a day resume Unchanged Rosuvastatin (rosuvastatin 40 mg oral tablet) 1 tab(s) Oral Daily resume Unchanged Sertraline (sertraline 50 mg oral tablet) 150 Milligram Oral Daily resume Unchanged torsemide (torsemide 20 mg oral tablet) See instructions 2 tablet Daily if weight > 3 pounds. Monitor weight daily ?? resume as taking at home Prescription Given During Visit No new medications prescribed at time of discharge.?? Laboratory Results Below is a partial list of the most recent Laboratory test results done prior to this discharge. You may have had other tests and procedures not included in this list. Please discuss all test resultswith your provider. Basic Metabolic Panel (12/18/2024) ???Sodium - 139 mmol/L???Potassium - 4.1 mmol/L???Chloride - 97 mmol/L???Bicarbonate Level - 26 mmol/L???Anion Gap - 16 mmol/L???Glucose Level - 107 mg/dL???BUN - 40 mg/dL???Creatinine-Blood - 1.37 mg/dL???Estimated GFR Creatinine - 42 ML/MIN/1.73 M2???Calcium - 9.5 mg/dL CBC (12/18/2024) ???WBC - 8.0 k/mm3???RBC - 3.86 m/mm3???Hgb - 10.1 Gm/dL???Hct - 32.6 %???MCV - 84.5 femtoliters???MCH - 26.2 pg???MCHC - 31.0 Gm/dL???Platelet Count - 239 k/mm3???RDW-SD - 50.4 femtoliters???MPV - 9.6 femtoliters???Nucleated RBC (Automated) - 0.0 #/100 WBC'S???Abs. NRBC - 0.0 k/mm3 GLUCOSE POC (12/18/2024) ???Glucose, POC - 124 mg/dL INR (12/18/2024) ???INR - 1.0???Protime (PT) - 10.8 seconds PTT (12/18/2024) ???APTT - 23.0 seconds Type and Screen (12/18/2024) ???Blood Type - A Positive???Antibody Screen - Negative You will be contacted within 72 hours with your results. Allergies (NKA means No Known Allergies) Bactrim??(upset stomach) Lipitor??(muscle aches) Milk Products??(gi upset) hydrochlorothiazide??(body aches) penicillin??( DIFFICULTY BREATHING , rash) Problems Active Problems??(31) Adjustment Disorder with Mixed Anxiety and Depressed Mood?? Anemia?? Aortic stenosis?? Asthma?? Atrial fibrillation, chronic?? Bilateral Carpal tunnel syndrome, s/p surgical repair?? CAD (coronary artery disease)?? Cervical cancer?? Chronic systolic CHF (congestive heart failure)?? Claustrophobia?? Diabetes mellitus?? ZHANG (dyspnea on exertion)?? Dry eyes?? Endometrioid adenocarcinoma?? Fibromyalgia?? H/O heart block?? Heart murmur?? Hypercholesterolemia?? Hyperglycemia?? Hypertension?? IBS (irritable bowel syndrome)?? Idiopathic hypersomnolence?? Morbid obesity, actual BMI 47.78 as of 10/19/2016?? Non-insulin treated type 2 diabetes mellitus?? OA (osteoarthritis), kneees?? Obesity monitoring status?? Obstructive sleep apnea syndrome?? KELVIN on CPAP?? Severe obesity (BMI 35.0-39.9) with comorbidity?? Syncope?? Vaginal bleeding?? Education Materials Below is the list of Educational Leaflet Providered with your Discharge Instructions. [employer] Patient Education - Discharge Instructions for Cardiac Catheterization?? [employer] Patient Education - Procedural Sedation?? [employer] Patient Education - M-Groin I Discharge Instructions?? Valuables and Belongings I fully understand and agree that [facility] accepts no responsibility for all my personal property including clothing, toilet articles, radios, jewelry, dentures, hearing aids, rings, money, or any other property that is in my possession or is brought to me after admission. I understand certain valuables may be placed in a hospital safe for a short period of time. I understand that the hospital is not liable for loss or damage due to accident, fire, or other natural occurrence while said property is in the safe. I accept full responsibility for any personal property that I keep with me, and will not hold the hospital responsible in case of loss or disappearance. I acknowledge that i have been encouraged to send valuables and belongings home. ?? Date for Pt to Sign Valuables/Belongings: 12/18/24 12:02:00 ?? Valuables & Belongings ?? Clothes Electronic devices Jewelry Monetary Items Personal devices Miscellaneous Medications (Valuables) Valuables at Bedside Pants, Shirt, Shoes, Undergarments ? Walker ? Valuables Sent Home ? Valuables Sent to Security ? Valuables Sent to Locker ? Other Discharge Information ? Pulmonary Rehab Status?? Pulmonary Rehab Discharge Status?? Respiratory Rate:??15 br/min??Low ? Common Emergency Awareness Tips IS IT A STROKE? Act FAST and Check for these signs: FACE Does the face look uneven? ARM Does one arm drift down? SPEECH Does their speech sound strange? TIME Call at any sign of stroke ?? Heart Attack Signs Chest discomfort: Most heart attacks involve discomfort in the center of the chest and lasts more than a few minutes, or goes away and comes back. It can feel like uncomfortable pressure, squeezing, fullness or pain. Discomfort in upper body: Symptoms can include pain or discomfort in one or both arms, back, neck, jaw or stomach. Shortness of breath: With or without discomfort. Other signs: Breaking out in a cold sweat, nausea, or lightheaded. Remember, MINUTES DO MATTER. If you experience any of these heart attack warning signs, call to get immediate medical attention! ?? Smoking can increase your chances of developing chronic health problems and can cause harmful effects to other family members in your house. If you smoke, you are strongly encouraged to quit. Please call [facility] at [phone] or [phone] Assent ([phone]) or log in to [email or web address] for referrals to smoking cessation programs. ?? 988 Suicide & Crisis Lifeline is available 03/04 if you or someone you know needs to find a reason to keep living. By calling 988 you'll be connected to a skilled, trained counselor at a crisis center in your area. INPATIENT DISCHARGE INSTRUCTIONS SIGNATURE PAGE KATERINE TOVAR Location:[facility] Registration Date and Time:12/18/2024 10:35 EDT Primary Care Physician: Not on Staff, PCP Attending Physician: Erendira DELA CRUZ, [facility], I KATERINE TOVAR, have received the above patient education materials/instructions and have verbalized understanding. If ambulance or transport services are being used I further acknowledge being given a choice of service. ?? If you need to contact me, please call me at this number: . Patient/Personal Development Mentor Name: Patient/Personal Development Mentor Signature: Relationship to Patient: Witness Name/Signature: Date: * Nereida Grayson RN: PERFORM Event Display: Patient Education Leaflets Authored Date: [id number] Discharge Instructions for Cardiac Catheterization ?? [id number] Discharge Instructions for Cardiac Catheterization Cardiac catheterization??is an invasive??procedure??to look for certain heart problems. These problems may affect the heart's chambers, valves, and blood vessels. A thin, flexible tube (catheter) is put in a blood vessel in your groin or arm. The catheter is moved to the heart. The health care provider can look at the blood flow, blood pressure, and oxygen. They can inject contrast fluid??into your blood. This flows to your heart.??The provider can then take X-rays pictures??of your heart. Coronary angiography is often done as part of a cardiac cath. This looks for blocked areas in the arteries that send blood to the heart. If a blockage is found, your provider may try to open up the artery. They may put a stent in place. Your provider will talk with you about the results of your procedure . Ask any questions you have before you leave. This sheet will help you take care of yourselfat home. Home care ??? Have a responsible adult drive you home after your procedure. ??? Don't drive or makeany important decisions for at least 24 hours after getting any type of sedation or anesthesia.? Drink?? 6 to 8??glasses of water over the next 24 hours. This is to help flush the contrast dye out of your body. Call your health care team if your urine has any change in color. ??? Take your temp erature every day for 3 to 5 days. If you feel cold and clammy or start sweating, take your temperature right away. Call your health care team. ??? Do only light and easy activities for??the next?? 2to 3??days. Ask for help with chores and errands while you recover. [facility] ??? Don't lift anything heavy??until your health care team says it's safe. ??? Ask your health care team when you can expect to return to work. Unless your job involves lifting, you may be able to return to your normal activities within 2 days. ??? Take your medicines as directed. Don't skip doses. ??? Check your incisions every day for signs of infection. These include redness, swelling, and fluid leaking. It's normal to have a small bruise or bump where the catheter was put in. Abruise that's getting larger is not normal. Tell your health care team about this. Call your team if you see blood forming in the incision. Go to the emergency room if you have uncontrolled bleeding from the artery site. This is even more important if you take medicines that make it hard for your blood to clot. These include aspirin, clopidogrel, prasugrel, and brilinta. ??? Eat a healthy diet. Make sure it's low in fat, salt, and cholesterol. Ask your health care team for diet information. ???Stop smoking. Sign up for a quit-smoking program. Or ask your health care team for help. ??? Exercise as your health care team tells you to. Your team??may advise you to start a cardiac rehab program. Cardiac rehab is an exercise program where trained health care staff watch your progress and stress on your heart while you exercise. Ask your team how to enroll. ??? Don't swim or take baths until your health care team says it???s OK. You can shower the day after the procedure. Keep the site clean and dry. This keeps the incision from getting wet and infected until the skin and artery can heal.??? Follow all other after-care instructions from your team.? Follow-up care ??? Make a follow-up appointment as advised. It's common to have a follow-up appointment 2 to 4 weeks after an angioplasty or coronary stent procedure. ??? Make a yearly appointment. This is??to make sure you're still doing well and not having any new symptoms. ??? Don't wait for a follow-up appointment if your medicines aren't working or you're having heart-related symptoms. Call your provider. ?? When to contact your doctor Contact your provider right away if: ??? You have severe or increasing pain, numbness, coldness, ora bluish color in the leg or arm that held the catheter. ??? You have a fever of 100.4?? F??( 38??C) or higher, or as advised by your provider. ??? There are signs of infection at the incision site. These include redness, swelling, drainage, or warmth. ??? There is bleeding, bruising, or a lot of??swelling where the catheter was inserted. ??? You have blood in your urine. ??? Your stools are black or tarry. ??? You have any unusual bleeding. ??? Your heartbeat is irregular, very slow, or fast. ??? You are dizzy. ?? Call 911 Call 911 if: ??? You have chest pain. ??? You are short of breath. ??? You feel sudden numbness or weakness in arms, legs, or face, or have trouble speaking. ??? The puncture site swells up very fast. ??? You have bleeding from the puncture site that doesn't slow down with firm pressure. ?? Last Reviewed Date: 2024 00:00:00 ?? [id number] [employer]. All rights reserved. This information is not intended as a substitute for professional medical care. Always follow your healthcare professional's instructions. ?? * Nereida Grayson RN: PERFORM Event Display: Patient Education Leaflets Authored Date: [id number] Procedural Sedation ?? 79634 Procedural Sedation Procedural sedation is medicine to ease discomfort, pain, and anxiety during a procedure. The medicine is often given through an IV (intravenous) line in your arm or hand. In some cases, the medicinemay be taken by mouth or inhaled. While you are under sedation, you will likely be awake. But you may not remember it afterward. Why procedural sedation is used Sedation is used for many types of procedures. The goal is to reduce pain, anxiety, and stressful memories of a procedure. It can help your healthcare provider treat you. For example, having a brokenbone fixed may be easier if you feel relaxed. This type of sedation is used only for short, basic procedures. It's not used for complex surgery. Some procedures that use this type of sedation include: ??? Dental surgery ??? Breast biopsy, to take a sample of breast tissue ??? Endoscopy, to look at gastrointestinal problems ??? Bronchoscopy, tocheck for lung problems ??? Bone or joint realignment, to fix a broken bone or dislocated joint ???Minor foot or skin surgery ??? Electrical cardioversion, to restore a normal heart rhythm ??? Lumbar puncture, to check for neurological disease ?? Risks of procedural sedation Risks and possible side effects include: ??? Headache ??? Nausea and vomiting ??? Bad memories of the procedure ??? Slowed breathing ??? Changes in heart rate and blood pressure (rare) ??? Inhalation of stomach contents into your lungs (rare) Side effects will likely go away shortly after the procedure. Your healthcare team will watch your heart rate and breathing during and after your sedation. This is to help prevent problems. Your own risks may vary. They can be based on your age and your overall health. They also depend onthe type of sedation you are given. Talk with your healthcare provider about the risks that apply most to you. ?? Getting ready for procedural sedation Talk with your provider about how to get ready for your procedure. Tell them about all the medicines you take. This includes rfzv-rqg-[id number] medicines, such as ibuprofen. It also includes vitamins, herbs, and other supplements. You may need to stop taking some medicines before the procedure, such as blood thinners and aspirin. If you smoke, you should stop. This is to lessen the chance of a lungproblem. Talk with your provider if you need help to stop smoking. Tell your provider if you: ??? Have had any problems in the past with sedation or anesthesia ??? Have had any recent changes in your health, such as an infection or fever ??? Are or think you could be Also: ??? Follow any directions you are given for not eating or drinking before procedure. ??? Ask a trusted adult to take you home after the procedure. You can???t drive on the day you have sedation. ??? Ask a trusted adult to stay with you for a few hours while you recover. ??? Don't make any important decisions, such as financial or legal, on the day after you have sedation. ??? Follow all other instructions from your provider. ?? During your procedural sedation You may have your procedure in a hospital or a clinic. Sedation is done by a trained healthcare provider. In general, you can expect the following: ??? You will be given medicine through an IV line in your arm or hand. Or you may get a shot or take it by mouth. Or you may inhale it through a mask. ??? If you have medicine through an IV, you may feel the effects very quickly. You will start to feel relaxed and drowsy. ??? During the procedure, your heart rate, breathing, and blood pressure will be closely watched. Your breathing and blood pressure may decrease a little. But you will likely notneed help with your breathing. You may get a little extra oxygen. This is done through a mask or some soft plastic prongs under your nose. ??? You will likely be awake the whole time. If you do fall asleep, you should be easy to wake up, if needed. You should feel little or no pain. ??? When your procedure is over, the sedative medicine will be stopped. ?? After your procedural sedation You will start to feel more awake and aware. But you will likely be drowsy for a while afterward. You will be closely watched as you become more alert. You may have a faint memory of the procedure. Or you may not remember it at all. You should be able to go home within 1 to 2 hours after your procedure. Plan to have a trusted adult stay with you for a few hours. This person should make sure your condition is not getting worse. They should also watch for problems, and keep you safe. You may have side effects, such as nausea, fatigue, or unsteadiness for up to 24 hours. You may also feel lightheaded. Tell your healthcare provider if they continue. Don???t drive or operate dangerous machines during the next 24 hours. Also, don't make any important business or personal decisions. And don't drink any alcohol during the next 24 hours. Take extra care when walking and moving, You may be at a higher risk of falling. Follow any instructions you were given for eating and drinking. Be sure to follow all after-care directions. ?? When to call your healthcare provider Have someone call your healthcare provider right away if any of the following occur: ??? Drowsinessthat gets worse ??? Weakness or dizziness that gets worse ??? Repeated vomiting ??? Your speech is slurred, and others cannot understand you ??? Severe or ongoing pain from the procedure, not relieved by the pain medicine (if prescribed) ??? Fever of 100.4?? F (38??C) or higher, or as advised by your healthcare provider ??? New rash ?? Call 911 Have someone call 911 if any of the following occur: ??? Trouble breathing ??? Trouble swallowing ??? Chest pain ??? Loss of consciousness or you can't be awakened ?? Last Reviewed Date: 2022 00:00:00 ?? [id number] [employer]. All rights reserved. This information is not intended as a substitute for professional medical care. Always follow your healthcare professional's instructions. ?? * Kenan BLUE, Nereida: PERFORM Event Display: Patient Education Leaflets Authored Date: M-Groin I Discharge Instructions ?? 179 Groin Discharge Instructions No heavy lifting over 10 pounds (for example: gallon of milk) 1 week following the procedure; gradually increase normal activity over the next 5 days. Avoid straining/pushing when moving bowels You may feel like resting more after your procedure. Slowly start to do more each day. Rest when you feel it is needed. Make sure to look at your procedure site every day until it is completely healed. You may see bruising at the puncture site and that is common after the procedure. You may shower the day after your procedure. Remove the band aid before showering. Wash the area gently with soap and water. Leave open to air. Do not take tub baths, hot tubs, soaking of the puncture site or swimming for 1 week. Do not put any creams, powders or lotions on your puncture site You may resume sexual activity the day after your procedure; avoid bending the hip on ?? the side of the groin puncture excessively and any strenuous positions for 1 week. Call your doctor if your procedure site develops any of the following: ??? New onset severe pain ??? New onset lump or swelling ??? Bleeding that does not stop with lightpressure ? EKG study * Event Display: ECG 12-Lead Authored Date: Please click on pdf link to open report * Event Display: ECG 12-Lead Authored Date: Ventricular Rate: 65 BPM Atrial Rate: 65 BPM P-R Interval: 138 ms QRS Duration: 186 ms Q-T Interval: 528 ms QTC Calculation(Bazett): 549 ms P [place]: 55 degrees R [place]: -65 degrees T [place]: 109 degrees Atrial-sensed ventricular-paced rhythm with occasional Premature ventricular complexes Abnormal ECG When compared with ECG of 08-Oct-2024 01:07, Vent. rate has decreased by 6 bpm Confirmed by BRANDON VELAZQUEZ MD ([id number]) on 12/18/2024 2:43:39 PM [place]: BRANDON VELAZQUEZ MD Cardiology * Event Display: Cardiology Office Note, Non- Authored Date: Patient Care team information Care Team Personnel Name: Joanie Stewart RN Position: [facility] RN Member Role: Primary Care Nurse Name: Prashant Jimenez RN Position: [facility] RN Member Role: Primary Care Nurse Name: Nava Roman RN Position: [facility] RN Member Role: Primary Care Nurse Name: Kacey Calabrese RN Position: [facility] RN Member Role: Primary Care Nurse Name: Karen Colvin RN Position: [facility] RN Member Role: Primary Care Nurse Name: Paulie Rojo RN Position: [facility] RN Member Role: Primary Care Nurse Name: Carolina Stewart NP Position: [facility] Associate Professional Member Role: [employer] Provider Address: [address] [place], [place] [address] [address] Telecom: Name: Yaritza Mckenzie RN Position: [facility] RN Member Role: Primary Care Nurse Name: Apolonia Samuel RN Position: [facility] RN Member Role: Primary Care Nurse Name: Rita Lyons RN Position: [facility] RN Member Role: Primary Care Nurse Name: Elver Garcia DO Position: [facility] Renal MD Member Role: [employer] Physician Address: [address] [place] [address] [address] [facility] [address] Telecom: Name: David Goodwin RN Position: [facility] RN Supv Member Role: Primary Care Nurse Name: Talon Negron RN Position: [facility] AMB Nurse Member Role: Primary Care Nurse Name: Segundo Torres Jr, RN Position: [facility] ED RN W/OE and Tasks Member Role: Primary Care Nurse Name: Not on Staff, PCP Position: [facility] Physician (General Medicine) Member Role: PCP Name: Екатерина Leon RN Position: [facility] Onco RN Member Role: Primary Care Nurse Name: Teddy Cid RN Position: [facility] RN Member Role: Primary Care Nurse Name: Raulito Kay RN Position: [facility] RN Member Role: Primary Care Nurse Name: Radha White LPN Position: [facility] RN Member Role: Primary Care Nurse Name: Adenike Muller RN Position: [facility] AMB Nurse Member Role: Primary Care Nurse Care Team Related Persons Name: RADHAMES TOVAR Name: AMARI RAI Insurance Providers Guarantor name: KATERINE TOVAR Health Plan Information #: 2 Payer: [employer] Member Number: [id number] Policy Number: NA Group Number: NA Health Plan Information #: 3 Payer: [employer] Member Number: [id number] Policy Number: NA Group Number: NA Health Plan Information #: 1 Payer: MEDICARE PART B OUTPT Member Number: [id number] Policy Number: NA Group Number: NA Health Plan Information #: 4 Payer: MEDICARE PART B OUTPT Member Number: [id number] Policy Number: NA Group Number: NA
--- OUTSIDE RECORDS SUMMARY | 2024-12-19 16:32 | XMS_ITS | Data Portability ---
Author Organization [facility], Main Office Address [address] [address] [address] [place] [address] Care Team Providers Care Aircraft Power Plant Assembler Name Role Phone CAREONE (NONO UNIT) OTHER [phone] Assessment Encounter Date Assessment Date Assessment LastModified by Organization Details LastModified Time 02/12/2024 02/12/202402/06 na 138 k 3.3 cre 1.8 bun 69 wbc 12.97 hgb 9.74 hct 31.7 [email or web address] Not available 02/12/2024 11:23:12 02/13/2024 02/13/202402/06 na [...] 10 hct 34 5/28 wbc=11.1 hb=10.5 cre=2.15 [email or web address] Not available 02/19/2024 11:50:45 02/21/2024 02/21/202402/06 na [...] Organization Details Recorded Time Irritable bowel syndrome 68755358 Active 2023 [facility] [address], [address], [facility] [employer] 12:54:58 Obstructive sleep apnea syndrome 34939551 Active 2023 [employer] , [address], [place], [address], [facility] 4 12:55:01 Congestive heart failure 24050971 Active 2023 [employer] , [address], [place], [address], [facility] [employer] 4 12:55:05 Mixed anxiety and depressive disorder 093642481 Active 2023 [employer] , [address], [place], [address], [facility] 4 12:55:19 Falls 163173760 Active [address] [facility] [address], [place], [address], [facility] [employer] [facility] 4 12:55:23 Anemia 343287253 Active 2023 [facility] [address], [address], [place], [address], [employer] [facility] 4 12:55:28 Fibromyalgi a 109623439 Active 2023 [facility] [address], [address], [place], [address], [employer] [facility] 4 12:55:33 Hypercholes terolemia 07234117 Active [address], [place], [address], [employer] [facility] 4 12:55:39 Essential hypertensio n 74648368 Active [address], [place], [address], [employer] [facility] 4 12:55:45 Coronary arterioscle rosis 64370749 Active [address], [place], [address], [employer] [facility] 4 12:55:59 Diabetes mellitus 47926472 Active [address] , [address], [place], [address], [facility] [facility] 4 12:56:02 Aortic valve stenosis 02649421 Active [address], [place], [address], [employer] [facility] 4 12:56:26 Asthma 591252165 Active 2023 [facility] [address], [address], [place], [address], [employer] [facility] 4 12:56:34 Atrial fibrillatio n 56406086 Active 2023 IRA LORD [address], [address], [place], [address], [facility] [facility] 4 12:56:39 Malignant tumor of cervix 997238928 Active 2023 IRA LORD [address], [address], [place], [address], [facility] 4 12:56:51 Morbid obesity 466609808 Active 2023 IRA LORD [address], [address], [place], [address], [facility] 4 12:57:07 Acute nontraumati c kidney injury 8649574767792 03 Active 2023 IRA LORD [address], [address], [place], [address], [facility] 4 13:27:11 Problem Notes None recorded. Procedures Surgical History Date Name Laterality Status Provider Name and Address Organization Details Recorded Time total replacement of right knee joint completed IRA LORD [address], [address], [place], [address], [facility] 02/07/2024 12:58:[address] delivery completed IRA LO [address], [address], [place], [address], [facility] 02/07/2024 12:58:42 Appendectomy completed IRA LORD [address], [address], [place], [address], [facility] 02/07/2024 12:58:50 Imaging Results None recorded. Procedure Notes None recorded. Medical Equipment None Reported. Allergies Allergen ID Allergen Name Allergen Category Reaction Reaction Severity Criticality Documentation Date Start Date Code Code System Note Provider Name and Address Organization Details Recorded Time 53626 Bactrim medicatio n Not available Not available Not available 02/07/2024 79305 9 RxNorm Not Available Not Available Not Available 44089 Keflex medicatio n Not available Not available Not available 02/07/2024 39284 7 RxNorm Not Available Not Available Not Available 24202 clindamyc in Not available Not available Not available Not available 02/07/2024 2582 RxNorm Not Available Not Available Not Available 11945 gabapenti n medicatio n Not available Not available Not available 02/07/2024 92117 RxNorm Not Available Not Available Not Available 31023 hydrochlo rothiazid e medicatio n Not available Not available Not available 02/07/2024 5487 RxNorm Not Available Not Available Not Available 63360 Product containin g penicilli n (product) medicatio n Not available Not available Not available 02/07/2024 51406 8001 SNOMED Not Available Not Available Not Available 33090 Product containin g 3-hydroxy -3-methyl glutaryl- coenzyme A reductase inhibitor (product) medicatio n Not available Not available Not available 02/07/2024 73391 009 SNOMED Not Available Not Available Not Available Medications Not known to be on any medication Vitals Date Recorded Body temperature Heart rate Systolic blood pressure Diastolic blood pressure Provider Name and Address Organization Details Last Updated DateTime 02/12/2024 97.8 [degF] 78 /min 127 mm[Hg] 56 mm[Hg] IRA L ORD [address] , [address], [address] , [facility] 02/12/2024 08:48:06 Date Recorded Body weight Systolic blood pressure Diastolic blood pressure Provider Name and Address Organization Details Last Updated DateTime 02/13/2024 169318.51 g 151 mm[Hg] 56 mm[Hg] IRA LORD [address], [address] [place] [address], [address], [facility] 02/13/2024 11:02:26 Date Recorded Body temperature Heart rate Systolic blood pressure Diastolic blood pressure Provider Name and Address Organization Details Last Updated DateTime 02/21/2024 97.4 [degF] 68 /min 150 mm[Hg] 56 mm[Hg] IRA L ORD [address], [address] [place] [address], [address] , [facility] 02/21/2024 09:15:36 Date Recorded Body weight Provider Name an d Address Organization Details Last Updated DateTime 02/23/2024 75874.32 g IRA LORD [address], [address] [place] [address], [address], [facility] 02/23/2024 09:28:17 Social History None recorded. Functional Status None recorded. Mental Status None recorded. Family History Nothing Reported. Medical History No medical history recorded. Gynecological HistoryNo gynecological history recorded. Obstetrics History GPAL:G 0 P 0 0 0 0 Immunizations Vaccine Type Date Status Note Provider Miky e and Address Organization Details Recorded Time Tdap 0 completed [facility] 02/09/2024 16:00:40 Pneumococcal conjugate PCV 13 8 completed [facility] 02/09/2024 16:00:54 pneumococcal polysaccharide PPV23 9 completed [facility] 02/09/2024 16:01:09 influenza, unspecified formulation 2 completed [facility] 02/09/2024 16:01:29 influenza, unspecified formulation 3 completed [facility] 02/09/2024 16:01:37 SARS-COV-2 (COVID-19) vaccine, UNSPECIFIED 1 completed [facility] 02/09/2024 16:01:57 SARS-COV-2 (COVID-19) vaccine, UNSPECIFIED 1 completed [facility] 02/09/2024 16:02:07 SARS-COV-2 (COVID-19) vaccine, UNSPECIFIED 1 completed [facility] 02/09/2024 16:02:14 Past Encounters Encounter ID Performer Location Encounter Start Date Encounter Closed Date Diagnosis/Indication Diagnosis SNOMED-CT Code Diagnosis ICD10 Code Diagnosis Note [id number] IRA Morelteddy at [facility] on [address] [place] [address] 02/07/2024 12:07:54 02/09/2024 11:05:42 Congestive heart failure 25370728 I50.9 losartan dailydaily weightsif weight gain of [address] torsemide 40 mg daily back on regimenfol low up with cardsmetop rolol 100 mg daily Diabetes mellitus 645161 09 E11.9 was on metformin 500 mg dailymonit or sugars and kidneysres ume if neededlisp ro with SS Acute nont raumatic kidney injury 1456981627 96625 N17.9 baseline creat 1.2-1.3fol low up with nephro outptlosar anderson 25 mg to start 02/08monito r need to start torsemide [place] 168539555 R29.6 with weaknessPT /OT eval and treat Coronary arteriosclerosis 17169736 I25.10 continueas a dailyplavi x 75 mg dailyrosou vastatin daily Atrial fibrillation 4943 6004 I48.91 s/p watchmanco ntinue metoprolol dailymonit or rate Fibromyalgia 898004116 M 79.7 continue gabapentin 100 mg qhsmonitor pain control Essential hypertension 43892000 I10 continue bp meds abovemonit or bps Irritable bowel syndrome 14383880 K58.9 incontinen t at baselinemo nitor bowels Mixed anxi ety and depressive disorder 195549790 F41.8 sertraline 150 mg dailymonit or mood Obstructiv e sleep apnea syndrome 39613021 G47.33 not on CPAP [id number] IRA Murguia at [facility] on [address] [place] [address] 02/09/2024 10:44:41 02/15/2024 15:21:43 Leukocytosis 231243917 D72.829 12.79compl aints of dysuriaadd urine reflex via straight cath [id number] Haile Garcia MD [facility] at [facility] on [address] [place] [address] 02/11/2024 13:08:26 02/15/2024 15:33:56 Congestive heart failure 03733150 I50.43 see HPInow ontorsemid e 40 mg to be taken if weight increases > 3 lbspatient is getting daily weightscur rently up 1.4 lbs since admitorder for torsemide added Acute nont raumatic kidney injury 3644449776 19103 N17.8 see HPIARF on CRFmonitor renal function with torsemide to be given prn for weight gainmonito r renal functionav oid nephrotoxi c meds as ableto f/u with nephroupda te with concernsre peat BMP in am Diabetes mellitus 118847 09 E11.9 continue out patient medsmonito r need to titratemet formin d/c'ed [place] 155620395 R29.6 PT OT Eval and treatmonit or fall risk and need for increased support in community Coronary arteriosclerosis 48104573 I25.10 hx of s/p CABGmetopr olol 100 mg qdasa 81 mg qdplavix 75 mg qdrosuvast atin 40m g qdmonitor for sx Atrial fibrillation 4943 6004 I48.0 hx of watchman procedurem etoprolol 100 mg qdmonitor for rate control Essential hypertension 29278838 I10 metoprolol 100 mg qdlosartan 25 mg qdmonitor bp and need to titrate Irritable bowel syndrome 15773933 K58.9 carrying dx added to PMH Mixed anxi ety and depressive disorder 291257921 F41.8 zoloft 150 mg qdmonitor for effect Obstructiv e sleep apnea syndrome 83750483 G47.33 carrying dx not on cpap [id number] IRA CHAPMAN Shantal at [facility] on [address] [place] [address] 02/12/2024 08:45:06 02/15/2024 15:57:04 Congestive heart failure 31800413 I50.43 see HPIcurrent ly up 5.4 lbs since admissiong iven 1 dose of torsemide this am-start torsemide 40 mg PO DAILY x 3 days-maverick nue daily weights-BM P ordered for today-nicholas tor fluid status closely Acute nont raumatic kidney injury 9097176966 24259 N17.8 see HPIARF on CRF 02/06 cre 1.8 BUN 69monitor renal function with torsemide X 3 doses-avoi d nephrotoxi c meds as able-to f/u with nephro-upd ate with concerns-r epeat BMP today [place] 079743123 R29.6 -PT OT Eval and treat-nicholas tor fall risk and need for increased support in community Diabetes mellitus 254728 09 E11.9 BS 103-metfor min d/c'ed-sto p accuchecks [id number] IRACARLITA Murguia at [facility] on [address] [place] [address] 02/13/2024 09:10:39 02/15/2024 16:07:26 Congestive heart failure 62107000 I50.43 see HPIcurrent ly up 5.4 lbs since admissionS tarted diuresing with torsemide yesterday- continue torsemide 40 mg PO DAILY x 3 days (end date: 02/15)-monit or daily weights-mo nitor fluid status closely Acute nont raumatic kidney injury 6119388375 78939 N17.8 ARF on CRF 02/06 cre 1.8 BUN 69kidney functionin g 02/11 cre 1.3 BUN 29monitor renal function with torsemide X 3 doses-avoi d nephrotoxi c meds as able-to f/u with nephro-upd ate with concerns-r epeat BMP next week [place] 752636929 R29.6 continue PT-monitor fall risk and need for increased support in community [id number] IRA Murguia at [facility] on [address] [place] [phone] 02/19/2024 14:02:28 02/22/2024 11:35:54 Congestive heart failure 50384555 I50.43 see HPIcurrent ly up 8 lbs since admissionD iuresed with torsemide 40 mg po daily x 3 days (end date: 02/15)wt continues to rise and she appears overloaded -CBC/ BMP tomorrow. add pro BNP-restar t torsemide 40 mg po daily x 3 days-monit or daily weights-mo nitor fluid status closely Acute nont raumatic kidney injury 6896023876 74558 N17.8 ARF on CRF 02/06 cre 1.8 BUN 69improvin cre 1.3 BUN 29monitor renal function with torsemide X 3 doses-avoi d nephrotoxi c meds as able-to f/u with nephro-upd ate with concerns-C BC/BMB tomorrow [place] 630927228 R29.6 continue PT-monitor fall risk and need for increased support in community [id number] IRA Murguia [facility] on [address] [place] [id number] 02/21/2024 09:14:28 02/23/2024 15:13:07 Congestive heart failure 10430256 I50.43 see HPIcurrent ly up 10 lbs since admissioni ncrease torsemide to 80 mg BID- re-eval monday-mon itor daily weights-mo nitor fluid status closely Acute nont raumatic kidney injury 2412329051 76439 N17.8 ARF on CRF 02/06 cre 1.8 BUN 69improvin g6/11 cre 1.2 BUN 18-avoid nephrotoxi c meds as able-to f/u with nephro [id number] IRA Morelteddy at [facility] on [address] [place] [address] 02/23/2024 09:25:30 02/28/2024 10:22:25 Congestive heart failure 57950651 I50.43 Now back down 7 lbsdecreas e torsemide to 40 mg daily-nicholas tor daily weights at home-monit or fluid status closelyWEI GH DAILY AT HOME, INCREASE TORSEMIDE IF WEIGHT INCREASES MORE THAN 3 LBS Acute nont raumatic kidney injury 7483981347 42276 N17.8 ARF on CRF 02/06 cre 1.8 BUN 69-avoid nephrotoxi c meds as able-to f/u with nephro [place] 976888763 R29.6 VNA at home will continue PT Diabetes mellitus 721305 09 E11.9 BS 103-metfor min d/c'ed Coronary arteriosclerosis 26536865 I25.10 continueas a dailyplavi x 75 mg dailyrosuv astatin daily Atrial fibrillation 4943 6004 I48.91 s/p watchmanco ntinue metoprolol daily Fibromyalgia 017100277 M 79.7 continue gabapentin 100 mg qhs Essential hypertension 65372206 I10 continue bp meds above Irritable bowel syndrome 19085135 K58.9 incontinen t at baseline Mixed anxi ety and depressive disorder 713672993 F41.8 sertraline 150 mg daily Obstructiv e sleep apnea syndrome 00594747 G47.33 not on CPAP Health Concerns Section Related Observation LastModified by Organization Detai ls LastModified Time None Recorded Concern Status LastModified by Organization Details LastModified Time None Recorded Advance Directives Directive None Recorded Payers Encounter Date Sequence Insurance Name Policy Number Policy Nichols Covered Member ID Nichols Member ID Guarantor Name 02/12/2024 1 [place] [employer] Risa Cisneros [id number] Risa Cisneros 02/12/2024 2 [employer] OPTIONS (MEDICARE SUPPLEMENT) Risa Cisneros [id number] Risa Cisneros 02/13/2024 1 [place] [facility] Risa Cisneros [id number] Risa Cisneros 02/13/2024 2 [employer] OPTIONS (MEDICARE SUPPLEMENT) Risa Cisneros [id number] Risa Cisneros 02/19/2024 1 [place] [facility] Risa Cisneros [id number] Risa Cisneros 02/19/2024 2 [employer] OPTIONS (MEDICARE SUPPLEMENT) Risa Cisneros [id number] Risa Cisneros 02/21/2024 1 [place] [facility] Risa Cisneros [id number] Risa Cisneros 02/21/2024 2 [employer] OPTIONS (MEDICARE SUPPLEMENT) Risa Cisneros [id number] Risa Cisneros 02/23/2024 1 [place] [facility] Risa Cisneros [id number] Risa Cisneros 02/23/2024 2 [employer] OPT[employer] (MEDICARE SUPPLEMENT) Risa Cisneros [id number] Risa Cisneros Notes Date Note Type Note [...] continue diuresing. Continue daily weights IRA CHAPMAN [address] [place] [address], [address], [place], [address], [facility] 02/12/2024 12:01:38 02/13/2024 text/html Patient is a [...] just received her am meds. IRA CHAPMAN [address] [place] [address], [address], [place], [address], [facility] 02/13/2024 11:03:20 02/19/2024 text/html Patient is a [...] Maintaining sats 95/97% on RA. IRA CHAPMAN [address] [place] [address], [address], [place], [address], [facility] 02/19/2024 14:04:57 02/21/2024 text/html Patient is a [...] monday and try to diurese. IRA CHAPMAN [address] [place] [address], [address], [place], [address], [facility] 02/21/2024 09:35:15 02/23/2024 text/html Patient is a [...] LBS SHOULD TITRATE TORSEMIDE DOSING. IRA CHAPMAN [address] [place] [address], [address], [place], [address], [facility] 02/23/2024 09:56:21 OBGyn Episode No OBEpisode recorded.
--- OUTSIDE RECORDS SUMMARY | 2024-12-19 16:32 | XMS_ITS | Encounter Summary ---
Author Organization [facility], Address [address] [place] [address] Phone Care Team Providers Care Rotary Machine Operator Name Role Phone Olamide Lyle NP Primary Care Provider [phone]- [phone] Encounter Details Date Type Department Care Team (Late st Contact Info) Description 04/08/2024 Documentation Only [facility], [address] [place] [address] Haleigh Almanza [address] [place] [address] Social History Tobacco Use Types [...] on filedocumented in this encounter Care Teams Rotary Machine Operator Relationship Specialty Start Date End Date Olamide Lyle NP [address] [place] [address], [address] [place] [address] PCP - General Nurse Practitioner 03/04/24 documented as of this encounter
--- OUTSIDE RECORDS SUMMARY | 2024-12-19 16:32 | XMS_ITS | Clinical Summary ---
Author Organization [facility], Address [address] [place] [address] [place] [address] Phone Care Team Providers Care Dtp Operator Name Role Phone Olamide Lyle NP Primary Care Provider +1- [phone] Allergies Active Allergy Reactions Criticality Noted Date [...] Visit [facility] [address] [place] [address] Eric Saavedra MD Stage 3a chronic kidney disease (HCC) (Primary Dx) 10/11/2024 Documentation Only [facility] [address] [place] [address] Leonie Thomas MA 10/11/2024 Documentation Only [facility] [address] [place] [address] Leonie Thomas MA 10/11/2024 Documentation Only [facility] [address] [place] [address] Leonie Thomas MA from Last 3 Months Immunizations Immunization Administration Dates Next Due Influenza (IM) Preservative [...] Diabetes: Visual Foot Exam 02/10/2024 Pneumococcal Vaccine: 50+ Years (4 of 4 - PPSV23 or PCV20) 06/18/2024 06/18/2019, 07/04/2018, 10/26/2015 Influenza Vaccine (Season Ended) 2025 06/19/2023, 03/19/2023, 06/22/2022, Additional history exists Hepatitis B Vaccine Aged Out No longe r eligible based on patient's age to complete this topic Insurance [facility] Medicare Care Teams Dtp Operator Relationship Specialty Start Date End Date Olamide Lyle NP [address] [place] [address], [address] [place] [address] PCP - General Nurse Practitioner 03/04/24
--- OUTSIDE RECORDS SUMMARY | 2024-12-19 16:32 | XMS_ITS | Encounter Summary ---
Author Organization [facility], Address [address] [place] [address] Phone Care Team Providers Care Signs And Displays Salesperson Name Role Phone Olamide Lyle NP Primary Care Provider [phone]- [phone] Encounter Details Date Type Department Care Team (Late st Contact Info) Description 02/29/2024 Documentation Only [facility], [address] [place] [address] Lashawn Cruz [address] [place] [address] Social History Tobacco Use Types [...] on filedocumented in this encounter Care Teams Signs And Displays Salesperson Relationship Specialty Start Date End Date Olamide Lyle NP [address] [place] [address], [address] [place] [address] PCP - General Nurse Practitioner 03/04/24 documented as of this encounter
--- OUTSIDE RECORDS SUMMARY | 2024-12-19 16:32 | XMS_ITS | Encounter Summary ---
Author Organization [facility], Address [address] [place] [address] Phone Care Team Providers Care Ring Cutter Lathe Operator Name Role Phone Olamide Lyle NP Primary Care Provider +1- [phone] Encounter Details Date Type Department Care Team (Late st Contact Info) Description 04/08/2024 Documentation Only [facility], [address] [place] [address] Haleigh Almanza [address] [place] [address] Social History Tobacco Use Types [...] on filedocumented in this encounter Care Teams Ring Cutter Lathe Operator Relationship Specialty Start Date End Date Olamide Lyle NP [address] [place] [address], 2[address] [place] [address] PCP - General Nurse Practitioner 03/04/24 documented as of this encounter
--- OUTSIDE RECORDS SUMMARY | 2024-12-19 16:32 | XMS_ITS | Encounter Summary ---
Author Organization [facility], Address [address] [place] [address] Phone Care Team Providers Care Petroleum Terminal Plant Operator Name Role Phone Olamide Lyle NP Primary Care Provider +1- [phone] Encounter Details Date Type Department Care Team (Late st Contact Info) Description 04/08/2024 Documentation Only [facility], [address] [place] [address] Haleigh Almanza [address] [place] [address] Social History Tobacco Use Types [...] on filedocumented in this encounter Care Teams Petroleum Terminal Plant Operator Relationship Specialty Start Date End Date Olamide Lyle NP [address] [place] [address], [address] [place] [address] PCP - General Nurse Practitioner 03/04/24 documented as of this encounter
[2024-12-19 16:36] LABS: Microalbum/Creatinine Ratio Ur 42.4 ug/mg cr (<30); Protein/Creatinine Ratio, Ur 0.16 (<0.2); Total Protein Urine Random 8 mg/dL (<12)
== END 2024-12-19 13:16 | disposition home or self-care (01) ==
LOC: HO.HVNA 13:15
PROVIDERS: PCP Nurse Practitioner Family; Visit Provider Internal Medicine
DX: E11.9 Type 2 diabetes mellitus without complications (principal); E55.9 Vitamin D deficiency, unspecified; N17.9 Acute kidney failure, unspecified
CPT/HCPCS: 81001; 81003; 82043; 82570; 84156

== ENCOUNTER 2025-01-02 15:50 | Outpatient (REF) | payer MEDICARE, SELFPAY ==
[2025-01-03 13:46] LABS: Appearance Urine Turbid; Color Urine Yellow; Glucose Urine UA Negative (Negative); Leukocyte Esterase Urine Large (3+) (Negative); Nitrite Urine Positive (Negative); PH 5.5 (5.0-9.0); UMIC TRIGGER UACC YES; Urine Blood Moderate (2+) (Negative); Urine Ketones Negative (Negative); Urine Protein 100 (2+) mg/dL (Neg-Trace)
[2025-01-03 13:58] LABS: Bacteria Urine 4+ (None Seen); Hyaline Casts Urine 0-2 /LPF (0-2); RBC Urine 0-2 /HPF (0-2); Squamous Epithelial Cell Urine 0-2 /HPF (0-2); UACC Culture Trigger YES; WBC Clumps Urine Present; WBC Urine >50 /HPF (0-5)
--- OUTSIDE RECORDS SUMMARY | 2025-01-03 14:09 | XMS_ITS | Encounter Summary ---
Author Organization [facility], Address [address] [place] [address] Phone Care Team Providers Care Sales Team Leader Name Role Phone Olamide Lyle NP Primary Care Provider +1- [phone] Encounter Details Date Type Department Care Team (Late st Contact Info) Description 10/11/2024 Documentation Only [facility], [address] [place] [address] [place] [address] Social History Tobacco Use Types [...] on filedocumented in this encounter Care Teams Sales Team Leader Relationship Specialty Start Date End Date Olamide Lyle NP [address] [place] [address], [address] [place] [address] PCP - General Nurse Practitioner 03/04/24 documented as of this encounter
--- OUTSIDE RECORDS SUMMARY | 2025-01-03 14:09 | XMS_ITS | Encounter Summary ---
Author Organization [facility], Address [address] [place] [address] Phone Care Team Providers Care Sack Maker Name Role Phone Olamide Lyle NP Primary Care Provider +1- [phone] Encounter Details Date Type Department Care Team (Late st Contact Info) Description 10/11/2024 Documentation Only [facility], [address] [place] [address] Leonie Thomas [place] [address] [place] [address] Social History Tobacco Use Types [...] on filedocumented in this encounter Care Teams Sack Maker Relationship Specialty Start Date End Date Olamide Lyle NP [address] [place] [address], [address] [place] [address] PCP - General Nurse Practitioner 03/04/24 documented as of this encounter
--- OUTSIDE RECORDS SUMMARY | 2025-01-03 14:10 | XMS_ITS | Clinical Summary ---
Author Organization [facility], Address [address] [place] [address] [place] [address] Phone Care Team Providers Care Industrial Tech Instructor Name Role Phone Olamide Lyle NP Primary Care Provider +1- [phone] Allergies Active Allergy Reactions Criticality Noted Date [...] Encounters Date Type Department Care Team Description 12/20/2024 Documentation Only [facility] [address] [place] [address] Leonie Thomas MA 11/13/2024 4:30 PM EST Office Visit [facility] [address] [place] [address] Eric Saavedra MD Stage 3a chronic kidney disease (HCC) (Primary Dx) 10/11/2024 Documentation Only [facility] [address] [place] [address] Leonie Thomas MA 10/11/2024 Documentation Only [facility] [address] [place] [address] Leonie Thomas MA 10/11/2024 Documentation Only [facility] [address] [place] [address] Leonie Thomas MA from Last 3 Months Immunizations Immunization Administration Dates Next Due Influenza (IM) Preservative Free 07/28/2016,06/11 Influenza Split Preservative Free ID 05/07/2013 Influenza, Quadrivalent, Pre servative Free 06/06/2019,06/11/2018 Influenza, Unspecified 06/19/2023,2022,06/22/2022,07/22,05/11/2020,06/11/2019,07/07/2011 Moderna SARS-COV-2 09/01/2021,01/21/2021, 021 PPD Test 02/06/2024,02/06/2024 Pneumococcal Conjugate 13-Valent 07/04/2018 Pneumococcal Polysaccharide 06/18/2019,02/15/201 6 Respiratory Syncytial Virus (Rsv), Unspecified 02/16/2024 [...] Vaccine: 50+ Years (4 of 4 - PCV20 or PCV21) 06/18/2024 06/18/2019, 07/04/2018, 10/26/2015 Influenza Vaccine (Season Ended) 2025 06/19/2023, 03/19/2023, 06/22/2022, Additional history exists Pneumococcal Vaccine: Peds (0 to 5 Years) and At-Risk Patients (6 to 49 Years) Discontinued 06/18/2019, 07/04/2018, 10/26/2015 Hepatitis B Vaccine Aged Out No longe r eligible based on patient's age to complete this topic Insurance [facility] Medicare Care Teams Industrial Tech Instructor Relationship Specialty Start Date End Date Olamide Lyle NP [address] [place] [address], [address] [place] [address] PCP - General Nurse Practitioner 03/04/24
--- OUTSIDE RECORDS SUMMARY | 2025-01-03 14:10 | XMS_ITS | Encounter Summary ---
Author Organization [facility], Address [address] [place] [address] Phone Care Team Providers Care Tag Machine Operator Name Role Phone Olamide Lyle NP Primary Care Provider +1- [phone] Encounter Details Date Type Department Care Team (Late st Contact Info) Description 12/20/2024 Documentation Only [facility], [address] [place] [address] Leonie Thomas [place] [address] [place] [address] Social History Tobacco Use Types [...] on filedocumented in this encounter Care Teams Tag Machine Operator Relationship Specialty Start Date End Date Olamide Lyle NP [address] [place] [address], [address] [place] [address] PCP - General Nurse Practitioner 03/04/24 documented as of this encounter
--- OUTSIDE RECORDS SUMMARY | 2025-01-03 14:10 | XMS_ITS | Encounter Summary ---
Author Organization [facility], Address [address] [place] [address] Phone Care Team Providers Care Diamond Driller Name Role Phone Olamide Lyle NP Primary Care Provider +1- [phone] Encounter Details Date Type Department Care Team (Late st Contact Info) Description 04/08/2024 Documentation Only [facility], [address] [place] [address] Haleigh Almanza [address] [place] [address] Social History Tobacco Use Types [...] on filedocumented in this encounter Care Teams Diamond Driller Relationship Specialty Start Date End Date Olamide Lyle NP [address] [place] [address], [address] [place] [address] PCP - General Nurse Practitioner 03/04/24 documented as of this encounter
--- OUTSIDE RECORDS SUMMARY | 2025-01-03 14:10 | XMS_ITS | Encounter Summary ---
Author Organization [facility], Address [address] [place] [address] Phone Care Team Providers Care Early Childhood Associate Teacher Name Role Phone Olamide Lyle NP Primary Care Provider +1- [phone] Encounter Details Date Type Department Care Team (Late st Contact Info) Description 04/08/2024 Documentation Only [facility], [address] [place] [address] Haleigh Almanza [address] [place] [address] Social History Tobacco Use Types [...] on filedocumented in this encounter Care Teams Early Childhood Associate Teacher Relationship Specialty Start Date End Date Olamide Lyle NP [address] [place] [address], [address] [place] [address] PCP - General Nurse Practitioner 03/04/24 documented as of this encounter
--- OUTSIDE RECORDS SUMMARY | 2025-01-03 14:10 | XMS_ITS | Encounter Summary ---
Author Organization [facility], Address [address] [place] [address] Phone Care Team Providers Care Log Handling Equipment Operator Name Role Phone Olamide Lyle NP Primary Care Provider +1- [phone] Encounter Details Date Type Department Care Team (Late st Contact Info) Description 10/11/2024 Documentation Only [facility], [address] [place] [address] Leonie Thomas [place] [address] [place] [address] Social History Tobacco Use Types [...] on filedocumented in this encounter Care Teams Log Handling Equipment Operator Relationship Specialty Start Date End Date Olamide Lyle NP [address] [place] [address], [address] [place] [address] PCP - General Nurse Practitioner 03/04/24 documented as of this encounter
--- OUTSIDE RECORDS SUMMARY | 2025-01-03 14:10 | XMS_ITS | Encounter Summary ---
Author Organization [facility], Address [address] [place] [address] Phone Care Team Providers Care Advertising Project Manager Name Role Phone Olamide Lyle NP Primary Care Provider +1- [phone] Encounter Details Date Type Department Care Team (Late st Contact Info) Description 04/08/2024 Documentation Only [facility], [address] [place] [address] Haleigh Almanza [address] [place] [address] Social History Tobacco Use Types [...] on filedocumented in this encounter Care Teams Advertising Project Manager Relationship Specialty Start Date End Date Olamide Lyle NP [address] [place] [address], [address] [place] [address] PCP - General Nurse Practitioner 03/04/24 documented as of this encounter
--- OUTSIDE RECORDS SUMMARY | 2025-01-03 14:10 | XMS_ITS | Encounter Summary ---
Author Organization [facility], Address [address] [place] [address] Phone Care Team Providers Care Vegetable Worker Name Role Phone Olamide Lyle NP Primary Care Provider +1- [phone] Encounter Details Date Type Department Care Team (Late st Contact Info) Description 02/29/2024 Documentation Only [facility], [address] [place] [address] Lashawn Cruz [address] [place] [address] Social History Tobacco Use Types [...] on filedocumented in this encounter Care Teams Vegetable Worker Relationship Specialty Start Date End Date Olamide Lyle NP [address] [place] [address], [address] [place] [address] PCP - General Nurse Practitioner 03/04/24 documented as of this encounter
--- OUTSIDE RECORDS SUMMARY | 2025-01-03 14:10 | XMS_ITS | Data Portability ---
Author Organization [facility], Main Office Address [address] [address] [address] [place] [address] Care Team Providers Care Distillery Miller Name Role Phone [facility] (NONO UNIT) OTHER Assessment Encounter Date Assessment Date Assessment LastModified by Organization Details LastModified Time 02/12/2024 02/12/202402/06 na 138 k 3.3 cre 1.8 bun 69 wbc 12.97 hgb 9.74 hct 31.7 [email or web address] Not available 02/12/2024 11:23:12 02/13/2024 02/13/202402/06 na [...] 10 hct 34 5/28 wbc=11.1 hb=10.5 cre=2.15 [email or web address] Not available 02/19/2024 11:50:45 02/21/2024 02/21/202402/06 na [...] Organization Details Recorded Time Irritable bowel syndrome 79370557 Active 2023 [facility] [address], [address], [facility] [employer] 12:54:58 Obstructive sleep apnea syndrome 95093464 Active 2023 [employer] , [address], [place], [address], [facility] 4 12:55:01 Congestive heart failure 89538209 Active 2023 [employer] , [address], [place], [address], [facility] [employer] 4 12:55:05 Mixed anxiety and depressive disorder 893447656 Active 2023 [employer] , [address], [place], [address], [facility] 4 12:55:19 Falls 222975932 Active [address], [place], [address], [facility] 4 12:55:23 Anemia 392247264 Active 2023 [facility] [address], [address], [place], [address], [facility] 4 12:55:28 Fibromyalgi a 607560769 Active 2023 [facility] [address], [address], [place], [address], [facility] 4 12:55:33 Hypercholes terolemia 23563619 Active [address], [address], [place], [address], [facility] 4 12:55:39 Essential hypertensio n 73596234 Active [address], [place], [address], [facility] 4 12:55:45 Coronary arterioscle rosis 95378343 Active [address], [address], [place], [address], [facility] 4 12:55:59 Diabetes mellitus 49570275 Active [address] , [address], [place], [address], [facility] 4 12:56:02 Aortic valve stenosis 06111204 Active [address], [place], [address], [facility] 4 12:56:26 Asthma 244178760 Active 2023 [facility] [address], [address], [place], [address], [facility] 4 12:56:34 Atrial fibrillatio n 57479754 Active 2023 IRA LORD [address], [address], [place], [address], [facility] [employer] [facility] 4 12:56:39 Malignant tumor of cervix 065152508 Active 2023 IRA LORD [address], [address], [place], [address], [facility] [employer] [facility] 4 12:56:51 Morbid obesity 757757705 Active 2023 IRA LORD [address], [address], [place], [address], [facility] [employer] [facility] 4 12:57:07 Acute nontraumati c kidney injury 1558601232730 03 Active 2023 IRA LORD [address], [address], [place], [address], [facility] [employer] [facility] 4 13:27:11 Problem Notes None recorded. Procedures Surgical History Date Name Laterality Status Provider Name and Address Organization Details Recorded Time total replacement of right knee joint completed IRA LORD [address], [address], [place], [address], [facility] [employer] [facility] 02/07/2024 12:58:[address], [address], [place], [address], [facility] [employer] [facility] 02/07/2024 12:58:42 Appendectomy completed IRA LORD [address], [address], [place], [address], [facility] [employer] [facility] 02/07/2024 12:58:50 Imaging Results None recorded. Procedure Notes None recorded. Medical Equipment None Reported. Allergies Allergen ID Allergen Name Allergen Category Reaction Reaction Severity Criticality Documentation Date Start Date Code Code System Note Provider Name and Address Organization Details Recorded Time 48218 Bactrim medicatio n Not available Not available Not available 02/07/2024 46780 9 RxNorm Not Available Not Available Not Available 47445 Keflex medicatio n Not available Not available Not available 02/07/2024 90198 7 RxNorm Not Available Not Available Not Available 47228 clindamyc in Not available Not available Not available Not available 02/07/2024 2582 RxNorm Not Available Not Available Not Available 27471 gabapenti n medicatio n Not available Not available Not available 02/07/2024 85136 RxNorm Not Available Not Available Not Available 64043 hydrochlo rothiazid e medicatio n Not available Not available Not available 02/07/2024 5487 RxNorm Not Available Not Available Not Available 10949 Product containin g penicilli n (product) medicatio n Not available Not available Not available 02/07/2024 27310 8001 SNOMED Not Available Not Available Not Available 70331 Product containin g 3-hydroxy -3-methyl glutaryl- coenzyme A reductase inhibitor (product) medicatio n Not available Not available Not available 02/07/2024 24695 009 SNOMED Not Available Not Available Not Available Medications Not known to be on any medication Vitals Date Recorded Body temperature Heart rate Systolic blood pressure Diastolic blood pressure Provider Name and Address Organization Details Last Updated DateTime 02/12/2024 97.8 [degF] 78 /min 127 mm[Hg] 56 mm[Hg] IRA L ORD [address] , [address], [address] , [facility] 02/12/2024 08:48:06 Date Recorded Body weight Systolic blood pressure Diastolic blood pressure Provider Name and Address Organization Details Last Updated DateTime 02/13/2024 241094.51 g 151 mm[Hg] 56 mm[Hg] IRA LORD [address], [address] [place] [address], [address], [facility] 02/13/2024 11:02:26 Date Recorded Body temperature Heart rate Systolic blood pressure Diastolic blood pressure Provider Name and Address Organization Details Last Updated DateTime 02/21/2024 97.4 [degF] 68 /min 150 mm[Hg] 56 mm[Hg] IRA L ORD [address], [address] [place] [address], [address] , [facility] 02/21/2024 09:15:36 Date Recorded Body weight Provider Name an d Address Organization Details Last Updated DateTime 02/23/2024 75470.32 g IRA LORD [address], [address] [place] [address], [address], [facility] 02/23/2024 09:28:17 Social History None recorded. Functional Status None recorded. Mental Status None recorded. Family History Nothing Reported. Medical History No medical history recorded. Gynecological HistoryNo gynecological history recorded. Obstetrics History GPAL:G 0 P 0 0 0 0 Immunizations Vaccine Type Date Status Note Provider Miky e and Address Organization Details Recorded Time Tdap 0 completed [facility] 02/09/2024 16:00:40 Pneumococcal conjugate PCV 13 8 completed [facility] 02/09/2024 16:00:54 pneumococcal polysaccharide PPV23 9 completed [facility] 02/09/2024 16:01:09 influenza, unspecified formulation 2 completed [facility] 02/09/2024 16:01:29 influenza, unspecified formulation 3 completed [facility] 02/09/2024 16:01:37 SARS-COV-2 (COVID-19) vaccine, UNSPECIFIED 1 completed [facility] 02/09/2024 16:01:57 SARS-COV-2 (COVID-19) vaccine, UNSPECIFIED 1 completed [facility] 02/09/2024 16:02:07 SARS-COV-2 (COVID-19) vaccine, UNSPECIFIED 1 completed [facility] 02/09/2024 16:02:14 Past Encounters Encounter ID Performer Location Encounter Start Date Encounter Closed Date Diagnosis/Indication Diagnosis SNOMED-CT Code Diagnosis ICD10 Code Diagnosis Note [id number] IRA Morelteddy at [facility] on [address] [place] [place] [address] 02/07/2024 12:07:54 02/09/2024 11:05:42 Congestive heart failure 11590485 I50.9 losartan dailydaily weightsif weight gain of [address] torsemide 40 mg daily back on regimenfol low up with cardsmetop rolol 100 mg daily Diabetes mellitus 342566 09 E11.9 was on metformin 500 mg dailymonit or sugars and kidneysres ume if neededlisp ro with SS Acute nont raumatic kidney injury 8014286197 53787 N17.9 baseline creat 1.2-1.3fol low up with nephro outptlosar anderson 25 mg to start 02/08monito r need to start torsemide [place] 813970955 R29.6 with weaknessPT /OT eval and treat Coronary arteriosclerosis 54548924 I25.10 continueas a dailyplavi x 75 mg dailyrosou vastatin daily Atrial fibrillation 4943 6004 I48.91 s/p watchmanco ntinue metoprolol dailymonit or rate Fibromyalgia 354996025 M 79.7 continue gabapentin 100 mg qhsmonitor pain control Essential hypertension 79712708 I10 continue bp meds abovemonit or bps Irritable bowel syndrome 11087283 K58.9 incontinen t at baselinemo nitor bowels Mixed anxi ety and depressive disorder 561576448 F41.8 sertraline 150 mg dailymonit or mood Obstructiv e sleep apnea syndrome 70594118 G47.33 not on CPAP [id number] IRA Murguia at [facility] on [address] [place] [address] 02/09/2024 10:44:41 02/15/2024 15:21:43 Leukocytosis 911380212 D72.829 12.79compl aints of dysuriaadd urine reflex via straight cath [id number] Haile Garcia MD [facility] at [facility] on [address] [place] [address] 02/11/2024 13:08:26 02/15/2024 15:33:56 Congestive heart failure 91801349 I50.43 see HPInow ontorsemid e 40 mg to be taken if weight increases > 3 lbspatient is getting daily weightscur rently up 1.4 lbs since admitorder for torsemide added Acute nont raumatic kidney injury 8300625720 19103 N17.8 see HPIARF on CRFmonitor renal function with torsemide to be given prn for weight gainmonito r renal functionav oid nephrotoxi c meds as ableto f/u with nephroupda te with concernsre peat BMP in am Diabetes mellitus 128431 09 E11.9 continue out patient medsmonito r need to titratemet formin d/c'ed [place] 680691183 R29.6 PT OT Eval and treatmonit or fall risk and need for increased support in community Coronary arteriosclerosis 24172918 I25.10 hx of s/p CABGmetopr olol 100 mg qdasa 81 mg qdplavix 75 mg qdrosuvast atin 40m g qdmonitor for sx Atrial fibrillation 4943 6004 I48.0 hx of watchman procedurem etoprolol 100 mg qdmonitor for rate control Essential hypertension 12902358 I10 metoprolol 100 mg qdlosartan 25 mg qdmonitor bp and need to titrate Irritable bowel syndrome 86396110 K58.9 carrying dx added to PMH Mixed anxi ety and depressive disorder 968440199 F41.8 zoloft 150 mg qdmonitor for effect Obstructiv e sleep apnea syndrome 31529352 G47.33 carrying dx not on cpap [id number] IRA CHAPMAN Shantal at [facility] on [address] [place] [id number] 02/12/2024 08:45:06 02/15/2024 15:57:04 Congestive heart failure 54097963 I50.43 see HPIcurrent ly up 5.4 lbs since admissiong iven 1 dose of torsemide this am-start torsemide 40 mg PO DAILY x 3 days-maverick nue daily weights-BM P ordered for today-nicholas tor fluid status closely Acute nont raumatic kidney injury 7246789096 84726 N17.8 see HPIARF on CRF 02/06 cre 1.8 BUN 69monitor renal function with torsemide X 3 doses-avoi d nephrotoxi c meds as able-to f/u with nephro-upd ate with concerns-r epeat BMP today [place] 927269049 R29.6 -PT OT Eval and treat-nicholas tor fall risk and need for increased support in community Diabetes mellitus 883579 09 E11.9 BS 103-metfor min d/c'ed-sto p accuchecks [id number] IRACARLITA Murguia at [facility] on [address] [place] [id number] 02/13/2024 09:10:39 02/15/2024 16:07:26 Congestive heart failure 14400055 I50.43 see HPIcurrent ly up 5.4 lbs since admissionS tarted diuresing with torsemide yesterday- continue torsemide 40 mg PO DAILY x 3 days (end date: 02/15)-monit or daily weights-mo nitor fluid status closely Acute nont raumatic kidney injury 6902050282 78060 N17.8 ARF on CRF 02/06 cre 1.8 BUN 69kidney functionin g 02/11 cre 1.3 BUN 29monitor renal function with torsemide X 3 doses-avoi d nephrotoxi c meds as able-to f/u with nephro-upd ate with concerns-r epeat BMP next week [place] 860680846 R29.6 continue PT-monitor fall risk and need for increased support in community [id number] IRA Murguia at [facility] on [address] [place] [address] 02/19/2024 14:02:28 02/22/2024 11:35:54 Congestive heart failure 06015285 I50.43 see HPIcurrent ly up 8 lbs since admissionD iuresed with torsemide 40 mg po daily x 3 days (end date: 02/15)wt continues to rise and she appears overloaded -CBC/ BMP tomorrow. add pro BNP-restar t torsemide 40 mg po daily x 3 days-monit or daily weights-mo nitor fluid status closely Acute nont raumatic kidney injury 2638016194 04313 N17.8 ARF on CRF 02/06 cre 1.8 BUN 69improvin cre 1.3 BUN 29monitor renal function with torsemide X 3 doses-avoi d nephrotoxi c meds as able-to f/u with nephro-upd ate with concerns-C BC/BMB tomorrow [place] 526283495 R29.6 continue PT-monitor fall risk and need for increased support in community [id number] IRA Murguia [facility] [place] on [address] [place] [id number] 02/21/2024 09:14:28 02/23/2024 15:13:07 Congestive heart failure 18870945 I50.43 see HPIcurrent ly up 10 lbs since admissioni ncrease torsemide to 80 mg BID- re-eval monday-mon itor daily weights-mo nitor fluid status closely Acute nont raumatic kidney injury 0633379712 81772 N17.8 ARF on CRF 02/06 cre 1.8 BUN 69improvin g6/11 cre 1.2 BUN 18-avoid nephrotoxi c meds as able-to f/u with nephro [id number] IRA Morelteddy at [facility] on [address] [place] [address] 02/23/2024 09:25:30 02/28/2024 10:22:25 Congestive heart failure 15401294 I50.43 Now back down 7 lbsdecreas e torsemide to 40 mg daily-nicholas tor daily weights at home-monit or fluid status closelyWEI GH DAILY AT HOME, INCREASE TORSEMIDE IF WEIGHT INCREASES MORE THAN 3 LBS Acute nont raumatic kidney injury 5325471103 79364 N17.8 ARF on CRF 02/06 cre 1.8 BUN 69-avoid nephrotoxi c meds as able-to f/u with nephro [place] 262659496 R29.6 VNA at home will continue PT Diabetes mellitus 973840 09 E11.9 BS 103-metfor min d/c'ed Coronary arteriosclerosis 94127996 I25.10 continueas a dailyplavi x 75 mg dailyrosuv astatin daily Atrial fibrillation 4943 6004 I48.91 s/p watchmanco ntinue metoprolol daily Fibromyalgia 540062419 M 79.7 continue gabapentin 100 mg qhs Essential hypertension 55464118 I10 continue bp meds above Irritable bowel syndrome 02045296 K58.9 incontinen t at baseline Mixed anxi ety and depressive disorder 718470446 F41.8 sertraline 150 mg daily Obstructiv e sleep apnea syndrome 44371682 G47.33 not on CPAP Health Concerns Section Related Observation LastModified by Organization Detai ls LastModified Time None Recorded Concern Status LastModified by Organization Details LastModified Time None Recorded Advance Directives Directive None Recorded Payers Encounter Date Sequence Insurance Name Policy Number Policy Nichols Covered Member ID Nichols Member ID Guarantor Name 02/12/2024 1 [place] [employer] Risa Cisneros [id number] Risa Cisneros 02/12/2024 2 [employer] (MEDICARE SUPPLEMENT) Risa Cisneros [id number] Risa Cisneros 02/13/2024 1 [place]: [facility] Risa Cisneros [id number] Risa Cisneros 02/13/2024 2 [employer] OPT[employer] (MEDICARE SUPPLEMENT) Risa Cisneros [id number] Risa Cisneros 02/19/2024 1 [place] [facility] Risa Cisneros [id number] Risa Cisneros 02/19/2024 2 [employer] (MEDICARE SUPPLEMENT) Risa Cisneros [id number] Risa Cisneros 02/21/2024 1 [place] [facility] Risa Cisneros [id number] Risa Cisneros 02/21/2024 2 [employer] (MEDICARE SUPPLEMENT) Risa Cisneros [id number] Risa Cisneros 02/23/2024 1 [place] [facility] Risa Cisneros [id number] Risa Cisneros 02/23/2024 2 [employer] (MEDICARE SUPPLEMENT) Risa Cisneros [id number] Risa Cisneros Notes Date Note Type Note [...] continue diuresing. Continue daily weights IRA CHAPMAN [address] [place] [address], [address], [place], [address], [facility] 02/12/2024 12:01:38 02/13/2024 text/html Patient is a [...] just received her am meds. IRA CHAPMAN [address] [place] [address], [address], [place], [address], [facility] 02/13/2024 11:03:20 02/19/2024 text/html Patient is a [...] Maintaining sats 95/97% on RA. IRA CHAPMAN [address] [place] [address], [address], [place], [address], [facility] 02/19/2024 14:04:57 02/21/2024 text/html Patient is a [...] monday and try to diurese. IRA CHAPMAN [address] [place] [address], [address], [place], [address], [facility] 02/21/2024 09:35:15 02/23/2024 text/html Patient is a [...] LBS SHOULD TITRATE TORSEMIDE DOSING. IRA CHAPMAN [address] [place] [address], [address], [place], [address], [facility] 02/23/2024 09:56:21 OBGyn Episode No OBEpisode recorded.
--- OUTSIDE RECORDS SUMMARY | 2025-01-03 14:10 | XMS_ITS | Encounter Summary ---
Author Organization [facility], Address [address] [place] [address] Phone Care Team Providers Care Monitoring Engineer Name Role Phone Olamide Lyle NP Primary Care Provider [phone] Encounter Details Date Type Department Care Team (Late st Contact Info) Description 04/08/2024 Documentation Only [facility], [address] [place] [address] Haleigh Almanza [address] [place] [address] Social History Tobacco Use Types [...] on filedocumented in this encounter Care Teams Monitoring Engineer Relationship Specialty Start Date End Date Olamide Lyle NP [address] [place] [address], [address] [place] [address] PCP - General Nurse Practitioner 03/04/24 documented as of this encounter
== END 2025-01-02 15:51 | disposition home or self-care (01) ==
LOC: HO.LNP 15:50
PROVIDERS: Visit Provider Nurse Practitioner Family
DX: R30.0 Dysuria (principal)
CPT/HCPCS: 81001; 87086

== ENCOUNTER 2025-02-17 11:00 | Outpatient (REF) | payer MEDICARE, SELFPAY ==
[2025-02-17 13:08] LABS: Appearance Urine Turbid; Color Urine Yellow; Glucose Urine UA Negative (Negative); Leukocyte Esterase Urine Large (3+) (Negative); Nitrite Urine Negative (Negative); PH 5.5 (5.0-9.0); Specific Gravity - Urine <= 1.005 (1.005-1.025); UMIC TRIGGER UACC YES; Urine Blood Small (1+) (Negative); Urine Ketones Negative (Negative); Urine Protein Negative (Neg-Trace)
[2025-02-17 13:51] LABS: Bacteria Urine 4+ (None Seen); Hyaline Casts Urine 0-2 /LPF (0-2); RBC Urine 0-2 /HPF (0-2); Squamous Epithelial Cell Urine 0-2 /HPF (0-2); UACC Culture Trigger YES; WBC Clumps Urine Present; WBC Urine >50 /HPF (0-5)
== END 2025-02-17 11:01 | disposition home or self-care (01) ==
LOC: HO.HMGCLNP 11:00
PROVIDERS: PCP Nurse Practitioner Family; Visit Provider Nurse Practitioner Family
DX: R30.0 Dysuria (principal)
CPT/HCPCS: 81001; 87086; 87088; 87186

== ENCOUNTER 2025-07-17 13:50 | Outpatient (REF) | payer MEDICARE, SELFPAY ==
[2025-07-17 16:06] LABS: Appearance Urine Turbid; Glucose Urine UA Negative (Negative); PH 5.5 (5.0-9.0); Specific Gravity - Urine 1.010 (1.005-1.025); UMIC TRIGGER UACC YES
[2025-07-17 16:19] LABS: UACC Culture Trigger YES
--- OUTSIDE RECORDS SUMMARY | 2025-07-17 17:29 | XMS_ITS ---
Author Organization [facility] Care Team Providers Care Manager Mining Name Role Phone Varun Connie Unavailable Unavailable Екатерина Mckenna Unavailable Unavailable Drea Trinh Unavailable Unavailable Allergies and adverse reactions Code CodeSystem Substance Reaction Severity StartDate Concern Status Bactrim Unknown 05/10/2024 active 5487 RXNORM hydroCHLOROthiazide Unknown 05/10/2024 a ctive 53393 RXNORM Lipitor Unknown 05/10/[address] Milk Unknown 05/10/2024 active 7984 RXNORM Penicillin Unknown 05/10/2024 active Care Team Name Role Address Phone Organization Dates Connie Bond PCP [address], [address], [facility] (Office): : [facility] 05/10/2024 - 06/05/2024 Екатерина Mckenna [address] [place], [address], [place] (Office): : [facility] 05/10/2024 - 06/05/2024 Drea Trinh [address] [facility] [address], [address], [facility] (Office): : [facility] 05/10/2024 - 06/05/2024 Immunizations Immunization Status Vaccine Details Vaccine Code CodeSystem Date Notes Influenza cancelled Influenza, split virus, trivalent, injectable, contains preservative 141 CVX created date: 05/14/2024 consent date: 05/30/2024 Diphtheria completed tetanus toxoid, reduced diphtheria toxoid, and acellular pertussis vaccine, adsorbed lotNumber: [id number] Mfg: Glax[employer] Demand The[employer]kline Given 0.5 intramuscularly 115 CVX created date: 05/14/2024 administer ed date: 06/10/2020 doseUOMN oncoded: mL PPSV23 (Previous Pneumococcal Polysaccharide)V accine completed pneumococcal polysaccharide vaccine, 23 valent lotNumber: [id number] Mfg: Merck [employer] Given 0.5 intramuscularly 33 CVX created date: 05/14/2024 administer ed date: 06/18/2019 doseUOMN oncoded: mL Moderna Covid-19 Booster (SARS-COV-2) vaccine completed SARS-COV-2 (COVID-19) vaccine, mRNA, spike protein, LNP, preservative free, 100 mcg/0.5mL dose or 50 mcg/0.25mL dose lotNumber: [id number] Mfg: P2P-NextA [employer]. Given 0.5 intramuscularly 207 CVX created date: 05/14/2024 administer ed date: 01/21/2021 doseUOMN oncoded: mL Moderna Covid-19 Booster (SARS-COV-2) vaccine completed SARS-COV-2 (COVID-19) vaccine, mRNA, spike protein, LNP, preservative free, 100 mcg/0.5mL dose or 50 mcg/0.25mL dose lotNumber: [id number] Mfg: P2P-NextA [employer] Given 0.5 intramuscularly 207 CVX created date: 05/14/2024 administer ed date: 12/23/2020 doseUOMN oncoded: mL (Respiratory Syncytial Virus) Arexvy Adjuvant Vaccine completed Respiratory syncytial virus (RSV), vaccine, recombinant, protein subunit RSV prefusion F, adjuvant reconstituted, 0.5 mL, preservative free 303 CVX created date: 05/14/2024 administer ed date: 02/16/2024 (Pneumococcal) PCV13- Conjugate 13-valent Vaccine completed pneumococcal conjugate vaccine, 13 valent 133 CVX created date: 05/14/2024 administer ed date: 07/04/2018 (Tetanus, Diphtheria, and Acellular Pertussis) Tdap completed tetanus toxoid, reduced diphtheria toxoid, and acellular pertussis vaccine, adsorbed 115 CVX created date: 05/14/2024 administer ed date: 06/10/2020 Mental Status Section Date Assessment Total Score Description 06/05/2024 BIMS 12 moderate cognit verito impairment CAM 0 No delirium ind icated PHQ-9 00 05/14/2024 BIMS 11 moderate cognit verito impairment CAM 0 No delirium ind icated PHQ-9 00 Insurance Providers Problems Problem # Description Date of onset Resolved Date Code CodeSystem Concern Status 1 POST-TRAUMATIC STRESS DISORDER, UNSPECIFIED 05/14/[address] active 2 ANXIETY DISORDER, UNSPECIFIED 05/10/[address] active 3 ATHEROSCLEROTIC HEART DISEASE OF [place] CORONARY ARTERY WITHOUT ANGINA PECTORIS 05/10/[address] active 4 CHRONIC ATRIAL FIBRILLATION, UNSPECIFIED 05/10/[address] active 5 CHRONIC KIDNEY DISEASE, STAGE 3B 05/10/[address] active 6 FIBROMYALGIA 05/10/[address] active 7 ISCHEMIC CARDIOMYOPATHY 05/10/[address] active 8 METABOLIC ENCEPHALOPATHY 05/10/[address] active 9 MOOD DISORDER DUE TO KNOWN PHYSIOLOGICAL CONDITION WITH DEPRESSIVE FEATURES 05/10/[address] active 10 MORBID (SEVERE) OBESITY DUE TO EXCESS CALORIES 05/10/[address] active 11 PRESENCE OF CARDIAC PACEMAKER 05/10/[address] active 12 REPEATED FALLS 05/10/[address] active 13 SEPSIS DUE TO ESCHERICHIA COLI [E. 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 WITHOUT ACUTE ORGAN DYSFUNCTION 05/10/[address] active 17 TYPE 2 DIABETES MELLITUS WITH DIABETIC NEPHROPATHY 05/10/[address] active 18 UNSPECIFIED ASTHMA, UNCOMPLICATED 05/10/[address] active 19 UNSPECIFIED MOOD [AFFECTIVE] DISORDER 05/10/[address] active 20 UNSPECIFIED PROTEIN-CALORIE MALNUTRITION 05/10/[address] active 21 UNSPECIFIED SYSTOLIC (CONGESTIVE) HEART FAILURE 05/10/[address] active 22 URINARY TRACT INFECTION, SITE NOT SPECIFIED 05/10/[address] active Reason for Referral No Reasons for Referral Entered Social History Social History Observation Description Start Date End Date Code Code System Current Smoking Status Tobacco smoking consumption unknown 849815886 SNOMED CT Sex Assigned At Female 1955 746[address]-8 [facility] Gender Identity Sexual Orientation Vital Signs Code Code System Vitals Name Values and Units Timing Information 9279-1 [facility] Respiratory Rate Value=18.0 Units=/m in 06/05/2024 8462-4 [facility] Blood Pressure-Diastolic Value=55 Un its=mmHg 06/05/2024 8480-6 [facility] Blood Pressure-Systolic Ywirc=758 Un its=mmHg 06/05/2024 8310-5 [facility] Body Temperature Value=98.1 Units= F 06/05/2024 8867-4 [facility] Heart rate Value=71.0 Units=/min 27164-5 [facility] O2 % BldC Oximetry Value=97.0 Units= % 06/05/2024 16011-4 [facility] Pain Level Value=0.0 06/05/2024 64802-9 [facility] Weight Jvitp=739.1 Units=Lbs 2339-0 [facility] Blood Sugar Value=91.0 Units=mg/dL 05/28/2024 8302-2 [facility] Height Value=61.4 Units=Inches 05/10/2024
--- OUTSIDE RECORDS SUMMARY | 2025-07-17 17:29 | XMS_ITS ---
Author Organization [facility] Care Team Providers Care Tail Worker Name Role Phone Sabiha Koenig Unavailable Unavailable Derick Matthews Unavailable Unavailable Haile Garcia Unavailable Unavailable Boubacar Violet Unavailable Unavailable Magdalena Patience Unavailable Unava ilable Iza Marquis Unavailable Unavailable Allergies and adverse reactions Code CodeSystem Substance Reaction Severity StartDate Concern Status Bactrim Unknown 02/06/2024 active 5487 RXNORM hydroCHLOROthiazide Unknown 02/06/2024 a ctive 69246 RXNORM Lipitor Unknown 02/06/[address] Milk Unknown 02/06/2024 active 7984 RXNORM Penicillin Unknown 02/06/2024 active Care Team Name Role Address Phone Organization Dates Haile Garcia [address], [address], [facility] (Office): : [facility] 02/07/2024 - 02/23/2024 Sabhia Koenig [address] [place] [address], [address], [facility] (Office): [facility] 02/07/2024 - 02/23/2024 Derick Matthews [address] [place] [address], [address], [place] (Office): [facility] 02/07/2024 - 02/23/2024 Violet Hamlin [address] [place] [address], [place], [address], [place] (Office): : [facility] 02/07/2024 - 02/23/[address] [facility], [place], [address], [place] (Office): [facility] 02/07/2024 - 02/23/2024 Iza Marquis [address] [facility] [address], [place], [address], [facility] (Office): : [facility] 02/07/2024 - 02/23/2024 Immunizations Immunization Status Vaccine Details Vaccine Code CodeSystem Date Notes TB 2 Step Mantoux Skin Test completed tuberculin skin test; unspecified formulation lotNumber: [id number] expiry: 09/10/2025 Mfg: PAR pharmaceutical Given 0.1 ml Right Forearm by mouth Step 1 of Multi-step with next step required 98 CVX created date: 4 consent date: 4 administe red date: 4 Pneumococcal Conjugate Vaccine (PCV13) completed pneumococcal conjugate vaccine, 13 valent 133 CVX created date: 4 administe red date: 8 Verified in MIIS. Pneumococcal Polysaccharide Vaccine (PPSV23) completed pneumococcal polysaccharide vaccine, 23 valent 33 CVX created date: 4 administe red date: 9 Verified in MIIS. TDAP( Tetanus/Diptheria /Perutssis) completed tetanus toxoid, reduced diphtheria toxoid, and acellular pertussis vaccine, adsorbed 115 CVX created date: 4 administe red date: 0 Verified in MIIS. SARS-COV-2 (COVID-19) completed SARS-COV-2 (COVID-19) vaccine, mRNA, spike protein, LNP, preservative free, 100 mcg/0.5mL dose or 50 mcg/0.25mL dose Mfg: Moderna Step 2 of Multi-step with next step required 207 CVX created date: 4 administe red date: 1 Verified in MIIS. SARS-COV-2 (COVID-19) completed SARS-COV-2 (COVID-19) vaccine, mRNA, spike protein, LNP, preservative free, 100 mcg/0.5mL dose or 50 mcg/0.25mL dose Mfg: Moderna Step 1 of Multi-step with next step required 207 CVX created date: 4 consent date: 4 administe red date: 1 Verified in MIIS. Prevnar 20 Pneumococcal conjugate (PCV20) new Pneumococcal conjugate vaccine 20-valent (PCV20), polysaccharide [id number] conjugate, adjuvant, preservative free 216 CVX created date: 4 consent date: 4 Educated by Joann Fernandez RN on 02/07/2024 SARS-COV-2 (COVID-19 BOOSTER) completed SARS-COV-2 (COVID-19) vaccine, mRNA, spike protein, LNP, preservative free, 100 mcg/0.5mL dose or 50 mcg/0.25mL dose Mfg: Moderna Booster # 1 207 CVX created date: 4 administe red date: 1 Verified in MIIS. RSV, recombinant, protein subunit RSVpreF, adjuvant rec completed Respiratory syncytial virus (RSV), vaccine, recombinant, protein subunit RSV prefusion F, adjuvant reconstituted, 0.5 mL, preservative free lotNumber: [id number] expiry: 11/02/2024 Mfg: Glaxo/Chairez/Anton Given 0.5 ml Right Deltoid intramuscularly 303 CVX created date: 4 consent date: 4 administe red date: 4 Educated by Joann Fernandez RN on 02/07/2024 influenza, unspecified formulation completed influenza virus vaccine, unspecified formulation 88 CVX created date: 4 administe red date: 3 Verified in MIIS. COVID-19 vaccine, vector-nr, [id number]-[id number], PF, 0.5 mL cancelled SARS-COV-2 (COVID-19) vaccine, mRNA, spike protein, LNP, preservative free, 50 mcg/0.5 mL dose 312 CVX created date: 4 consent date: 4 Educated by Joann Fernandez RN on 02/07/2024 Mental Status Section Date Assessment Total Score Description 02/23/2024 BIMS 15 cognitively int act CAM 0 No delirium ind icated PHQ-9 06 mild depression 02/12/2024 BIMS 15 cognitively int act CAM 0 No delirium ind icated PHQ-9 13 moderate depres marion Insurance Providers Problems Problem # Description Date of onset Resolved Date Code CodeSystem Concern Status 1 ACUTE KIDNEY FAILURE, UNSPECIFIED 02/06/[address] active 2 ACUTE ON CHRONIC SYSTOLIC (CONGESTIVE) HEART FAILURE 02/06/[address] active 3 ANEMIA, UNSPECIFIED 02/06/[address] active 4 ANXIETY DISORDER, UNSPECIFIED 02/06/[address] active 5 ATHEROSCLEROTIC HEART DISEASE OF [place] CORONARY ARTERY WITHOUT ANGINA PECTORIS 02/06/[address] active 6 ESSENTIAL (PRIMARY) HYPERTENSION 02/06/[address] active 7 FIBROMYALGIA 02/06/[address] active 8 IRRITABLE BOWEL SYNDROME, UNSPECIFIED 02/06/[address] active 9 MAJOR DEPRESSIVE DISORDER, RECURRENT, UNSPECIFIED 02/06/[address] active 10 MORBID (SEVERE) OBESITY DUE TO EXCESS CALORIES 02/06/[address] active 11 OBSTRUCTIVE SLEEP APNEA (ADULT) (PEDIATRIC) 02/06/[address] active 12 OTHER ASTHMA 02/06/[address] active 13 TYPE 2 DIABETES MELLITUS WITHOUT COMPLICATIONS 02/06/[address] active 14 UNSPECIFIED ATRIAL FIBRILLATION 02/06/[address] active Reason for Referral No Reasons for Referral Entered Social History Social History Observation Description Start Date End Date Code Code System Current Smoking Status Tobacco smoking consumption unknown 720693204 SNOMED CT Sex Assigned At Female 1955 [address]-9 [facility] Gender Identity Sexual Orientation Vital Signs Code Code System Vitals Name Values and Units Timing Information 9279-1 [facility] Respiratory Rate Value=17.0 Units=/m in 02/23/2024 8462-4 [facility] Blood Pressure-Diastolic Value=70 Un its=mmHg 02/23/2024 8480-6 [facility] Blood Pressure-Systolic Cgpqk=584 Un its=mmHg 02/23/2024 8310-5 [facility] Body Temperature Value=97.8 Units= F 02/23/2024 8867-4 [facility] Heart rate Value=86.0 Units=/min 51300-4 [facility] O2 % BldC Oximetry Value=95.0 Units= % 02/23/2024 54642-1 [facility] Pain Level Value=0.0 02/23/2024 63418-0 [facility] Weight Dwmrt=951.6 Units=Lbs 2339-0 [facility] Blood Sugar Rdddd=996.0 Units=mg/dL 02/12/2024 8302-2 [facility] Height Value=63.0 Units=Inches 02/07/2024
--- OUTSIDE RECORDS SUMMARY | 2025-07-17 17:29 | XMS_ITS | Data Portability ---
Author Organization [facility], Main Office Address [address] [address] [address] [place] [address] Care Team Providers Care Independent Contractor Name Role Phone CAREONE (NONO UNIT) OTHER Assessment Encounter Date Assessment Date Assessment LastModified by Organization Details LastModified Time 02/12/2024 02/12/202402/06 na 138 k 3.3 cre 1.8 bun 69 wbc 12.97 hgb 9.74 hct 31.7 [email or web address] Not available 02/12/2024 11:23:12 02/13/2024 02/13/202402/06 na [...] 10 hct 34 5/28 wbc=11.1 hb=10.5 cre=2.15 [email or web address] Not available 02/19/2024 11:50:45 02/21/2024 02/21/202402/06 na 138 k 3.3 cre 1.8 bun 69 wbc 12.97 hgb 9.74 hct 31.7 6/3 na 141 k 3.8 cre 1.3 bun 29 wbc 11.11 hgb 10 hct 34 /28 wbc=11.1 hb=10.5 cre=2.15 02/06 na 138 k [...] Organization Details Recorded Time Irritable bowel syndrome 56273143 Active 2023 IRA [address] , [address], [address], [facility] 12:54:58 Obstructive sleep apnea syndrome 77093233 Active 2023 Collect , [address], [place], [address], [facility] 12:55:01 Congestive heart failure 99863994 Active 2023 [address] [address] [address] , [address], [place], [address], [facility] 12:55:05 Mixed anxiety and depressive disorder 453709084 Active 2023 IRA [facility] [employer] , [address], [place], [address], [facility] 4 12:55:19 Falls 997831799 Active [address], [address], [place], [address], [facility] 4 12:55:23 Anemia 960202953 Active [address], [address], [place], [address], [facility] 4 12:55:28 Fibromyalgi a 389627873 Active [address], [address], [place], [address], [facility] 4 12:55:33 Hypercholes terolemia 85247385 Active [address], [address], [place], [address], [facility] 4 12:55:39 Essential hypertensio n 78115840 Active [address], [address], [place], [address], [facility] 4 12:55:45 Coronary arterioscle rosis 66832157 Active [address], [address], [place], [address], [facility] 4 12:55:59 Diabetes mellitus 93944290 Active [address], [address], [place], [address], [facility] 4 12:56:02 Aortic valve stenosis 92715221 Active [address], [address], [place], [address], [facility] 4 12:56:26 Asthma 821041084 Active [address], [address], [place], [address], [facility] 4 12:56:34 Atrial fibrillatio n 02438951 Active 2023 IRA LORD [address], [address], [place], [address], [facility] 4 12:56:39 Malignant neoplasm of cervix uteri 585928815 Active 2023 IRA LORD [address], [address], [place], [address], [facility] 4 12:56:51 Morbid obesity 627150705 Active 2023 IRA LORD [address], [address], [place], [address], [facility] 4 12:57:07 Acute nontraumati c kidney injury 8821320424630 03 Active 2023 IRA LORD [address], [address], [place], [address], [facility] 13:27:11 Problem Notes None recorded. Procedures Surgical History Date Name Laterality Status Provider Name and Address Organization Details Recorded Time total replacement of right knee joint completed IRA LORD [address], [address], [place], [address], [facility] 02/07/2024 12:58:[address] IRA [address], [address], [place], [address], [facility] 02/07/2024 12:58:42 Appendectomy completed IRA LORD [address], [address], [place], [address], [facility] 02/07/2024 12:58:50 Imaging Results None recorded. Procedure Notes None recorded. Medical Equipment None Reported. Allergies Allergen ID Allergen Name Allergen Category Reaction Reaction Severity Criticality Documentation Date Start Date Code Code System Note Provider Name and Address Organization Details Recorded Time 00123 Bactrim medicatio n Not available Not available Not available 02/07/2024 00612 9 RxNorm IRA LORD [address], [address], [place], [address], [facility] 12:53:17 69928 Keflex medicatio n Not available Not available Not available 02/07/2024 68749 7 RxNorm IRA LORD [address] [facility], [address], [place], [address], [facility] 4 12:53:21 65037 clindamyc in Not available Not available Not available Not available 02/07/2024 2582 RxNorm IRA [facility] [address] [facility], [address], [place], [address], [facility] 4 12:53:33 14160 gabapenti n medicatio n Not available Not available Not available 02/07/2024 06973 RxNorm IRA [facility] [address] [facility], [address], [place], [address], [facility] 12:53:36 01503 hydrochlo rothiazid e medicatio n Not available Not available Not available 02/07/2024 5487 RxNorm IRA [address], [address], [place], [address], [facility] 12:53:42 79200 Product containin g penicilli n (product) medicatio n Not available Not available Not available 02/07/2024 82993 8001 SNOMED IRA [address], [address], [place], [address], [facility] 12:53:51 42591 Product containin g 3-hydroxy -3-methyl glutaryl- coenzyme A reductase inhibitor (product) medicatio n Not available Not available Not available 02/07/2024 83244 009 SNOMED IRA [address], [address], [place], [address], [facility] 12:53:57 Medications Not known to be on any medication Vitals Date Recorded Body temperature Heart rate Systolic And Diastolic Provider Name and Address Organization Details Last Updated DateTime 02/12/2024 97.8 [degF] 78 /min 127/56 mm[Hg] IRA [address], [address], [place], [address], [facility] 02/12/2024 08:48:06 Date Recorded Body weight Systolic And Diastolic Provider Name and Address Organization Details Last Updated DateTime 02/13/2024 550654.51 g 151/56 mm[Hg] [facility] [address] [facility], [address], [place], [address], [facility] 02/13/2024 11:02:26 Date Recorded Body temperature Heart rate Systolic And Diastolic Provider Name and Address Organization Details Last Updated DateTime 02/21/2024 97.4 [degF] 68 /min 150/56 mm[Hg] IRA [address], [address], [place], [address], [facility] 02/21/2024 09:15:36 Date Recorded Body weight Provider Name an d Address Organization Details Last Updated DateTime 02/23/[address], [address], [place], [address], [facility] 02/23/2024 09:28:17 Social History None recorded. Functional Status None recorded. Mental Status None recorded. Family History Nothing Reported. Medical History No medical history recorded. Gynecological HistoryNo gynecological history recorded. Obstetrics History GPAL:G 0 P 0 0 0 0 Immunizations Vaccine Type Date Status Note Provider Nam e and Address Organization Details Recorded Time [facility]ap [facility] 16:00:40 Pneumococcal conjugate PCV 13 8 completed Piedad [facility] 02/09/2024 16:00:54 pneumococcal polysaccharide PPV23 9 completed Piedad [facility] 02/09/2024 16:01:09 influenza, unspecified formulation 2 completed Piedad [facility] 02/09/2024 16:01:29 influenza, unspecified formulation 3 completed Piedad [facility] 02/09/2024 16:01:37 SARS-COV-2 (COVID-19) vaccine, UNSPECIFIED 1 completed Piedad Mai [facility] 02/09/2024 16:01:57 SARS-COV-2 (COVID-19) vaccine, UNSPECIFIED 1 completed Piedad Mai [facility] 02/09/2024 16:02:07 SARS-COV-2 (COVID-19) vaccine, UNSPECIFIED 1 completed Piedad Mai [facility] 02/09/2024 16:02:14 Past Encounters Encounter ID Performer Location Encounter Start Date Encounter Closed Date Diagnosis/Indication Diagnosis SNOMED-CT Code Diagnosis ICD10 Code Diagnosis IMO Codes Diagnosis Note [id number] [facility] [address] [place] [address] 02/07/2024 12:07:54 02/09/2024 11:05:42 Congestive heart failure 71058468 I50.9 losartan dailydaily weightsif weight gain of [address] torsemide 40 mg daily back on regimenfol low up with cardsmetop rolol 100 mg daily Diabetes mellitus 973455 09 E11.9 was on metformin 500 mg dailymonit or sugars and kidneysres ume if neededlisp ro with SS Acute nont raumatic kidney injury 2753715978 56283 N17.9 baseline creat 1.2-1.3fol low up with nephro outptlosar anedrson 25 mg to start 02/08monito r need to start torsemide [place] 991792189 R29.6 with weaknessPT /OT eval and treat Coronary arteriosclerosis 24158935 I25.10 continueas a dailyplavi x 75 mg dailyrosou vastatin daily Atrial fibrillation 4943 6004 I48.91 s/p watchmanco ntinue metoprolol dailymonit or rate Fibromyalgia 634112667 M 79.7 continue gabapentin 100 mg qhsmonitor pain control Essential hypertension 19468059 I10 continue bp meds abovemonit or bps Irritable bowel syndrome 35944861 K58.9 incontinen t at baselinemo nitor bowels Mixed anxi ety and depressive disorder 923906338 F41.8 sertraline 150 mg dailymonit or mood Obstructiv e sleep apnea syndrome 42535732 G47.33 not on CPAP [id number] IRA Murguia [facility] on [address] [place] [phone] 02/09/2024 10:44:41 02/15/2024 15:21:43 Leukocytosis 776062619 D72.829 12.79compl aints of dysuriaadd urine reflex via straight cath [id number] MD Shantal Huang at [facility] on [address] [place] [address] 02/11/2024 13:08:26 02/15/2024 15:33:56 Congestive heart failure 12064310 I50.43 see HPInow ontorsemid e 40 mg to be taken if weight increases > 3 lbspatient is getting daily weightscur rently up 1.4 lbs since admitorder for torsemide added Acute nont raumatic kidney injury 9343185172 68494 N17.8 see HPIARF on CRFmonitor renal function with torsemide to be given prn for weight gainmonito r renal functionav oid nephrotoxi c meds as ableto f/u with nephroupda te with concernsre peat BMP in am Diabetes mellitus 522492 09 E11.9 continue out patient medsmonito r need to titratemet formin d/c'ed [place] 937951520 R29.6 PT OT Eval and treatmonit or fall risk and need for increased support in community Coronary arteriosclerosis 25947043 I25.10 hx of s/p CABGmetopr olol 100 mg qdasa 81 mg qdplavix 75 mg qdrosuvast atin 40m g qdmonitor for sx Atrial fibrillation 4943 6004 I48.0 hx of watchman procedurem etoprolol 100 mg qdmonitor for rate control Essential hypertension 71452464 I10 metoprolol 100 mg qdlosartan 25 mg qdmonitor bp and need to titrate Irritable bowel syndrome 37583577 K58.9 carrying dx added to PMH Mixed anxi ety and depressive disorder 356363191 F41.8 zoloft 150 mg qdmonitor for effect Obstructiv e sleep apnea syndrome 87320849 G47.33 carrying dx not on cpap [id number] IRA Murguia at [facility] on [address] [place] [address] 02/12/2024 08:45:06 02/15/2024 15:57:04 Congestive heart failure 72743010 I50.43 see HPIcurrent ly up 5.4 lbs since admissiong iven 1 dose of torsemide this am-start torsemide 40 mg PO DAILY x 3 days-maverick nue daily weights-BM P ordered for today-nicholas tor fluid status closely Acute nont raumatic kidney injury 1351899288 69297 N17.8 see HPIARF on CRF 02/06 cre 1.8 BUN 69monitor renal function with torsemide X 3 doses-avoi d nephrotoxi c meds as able-to f/u with nephro-upd ate with concerns-r epeat BMP today [place] 165049540 R29.6 -PT OT Eval and treat-nicholas tor fall risk and need for increased support in community Diabetes mellitus 867022 09 E11.9 BS 103-metfor min d/c'ed-sto p accuchecks [id number] IRA Murguia at [facility] on [address] [place] [address] 02/13/2024 09:10:39 02/15/2024 16:07:26 Congestive heart failure 15388924 I50.43 see HPIcurrent ly up 5.4 lbs since admissionS tarted diuresing with torsemide yesterday- continue torsemide 40 mg PO DAILY x 3 days (end date: 02/15)-monit or daily weights-mo nitor fluid status closely Acute nont raumatic kidney injury 6895815783 26278 N17.8 ARF on CRF 02/06 cre 1.8 BUN 69kidney functionin g 02/11 cre 1.3 BUN 29monitor renal function with torsemide X 3 doses-avoi d nephrotoxi c meds as able-to f/u with nephro-upd ate with concerns-r epeat BMP next week [place] 523629911 R29.6 continue PT-monitor fall risk and need for increased support in community [id number] IRA Murguia at [facility] on [address] [place] [address] 02/19/2024 14:02:28 02/22/2024 11:35:54 Congestive heart failure 01027686 I50.43 see HPIcurrent ly up 8 lbs since admissionD iuresed with torsemide 40 mg po daily x 3 days (end date: 02/15)wt continues to rise and she appears overloaded -CBC/ BMP tomorrow. add pro BNP-restar t torsemide 40 mg po daily x 3 days-monit or daily weights-mo nitor fluid status closely Acute nont raumatic kidney injury 0838928482 26436 N17.8 ARF on CRF 02/06 cre 1.8 BUN 69improvin g6/3 cre 1.3 BUN 29monitor renal function with torsemide X 3 doses-avoi d nephrotoxi c meds as able-to f/u with nephro-upd ate with concerns-C BC/BMB tomorrow [place] 172594629 R29.6 continue PT-monitor fall risk and need for increased support in community [id number] IRA Murguia at [facility] on [address] [place] [id number] 02/21/2024 09:14:28 02/23/2024 15:13:07 Congestive heart failure 03675419 I50.43 see HPIcurrent ly up 10 lbs since admissioni ncrease torsemide to 80 mg BID- re-eval monday-mon itor daily weights-mo nitor fluid status closely Acute nont raumatic kidney injury 7571955695 24160 N17.8 ARF on CRF 02/06 cre 1.8 BUN 69improvin g6/ cre 1.2 BUN 18-avoid nephrotoxi c meds as able-to f/u with nephro [id number] IRA Murguia at [facility] on [address] [place] [id number] 02/23/2024 09:25:30 02/28/2024 10:22:25 Congestive heart failure 31114864 I50.43 Now back down 7 lbsdecreas e torsemide to 40 mg daily-nicholas tor daily weights at home-monit or fluid status closelyWEI GH DAILY AT HOME, INCREASE TORSEMIDE IF WEIGHT INCREASES MORE THAN 3 LBS Acute nont raumatic kidney injury 8918860416 65495 N17.8 ARF on CRF 02/06 cre 1.8 BUN 69-avoid nephrotoxi c meds as able-to f/u with nephro [place] 249834965 R29.6 VNA at home will continue PT Diabetes mellitus 745076 09 E11.9 BS 103-metfor min d/c'ed Coronary arteriosclerosis 44085757 I25.10 continueas a dailyplavi x 75 mg dailyrosuv astatin daily Atrial fibrillation 4943 6004 I48.91 s/p watchmanco ntinue metoprolol daily Fibromyalgia 245973556 M 79.7 continue gabapentin 100 mg qhs Essential hypertension 38177606 I10 continue bp meds above Irritable bowel syndrome 65641294 K58.9 incontinen t at baseline Mixed anxi ety and depressive disorder 525831852 F41.8 sertraline 150 mg daily Obstructiv e sleep apnea syndrome 50552819 G47.33 not on CPAP Health Concerns Section Related Observation LastModified by Organization Detai ls LastModified Time None Recorded Concern Status LastModified by Organization Details LastModified Time None Recorded Advance Directives Directive None Recorded Payers Insurance Date Sequence Insurance Name Policy Number Policy Nichols Covered Member ID Nichols Member ID Guarantor Name 02/12/2024 1 [place]: [employer] Risa Cisnreos [id number] Risachristiane Ornelassusanne 02/28/2024 2 [employer] (MEDICARE SUPPLEMENT) Risa Cisneros [id number] Risa Cisneros Notes Date Note Type Note [...] continue diuresing. Continue daily weights IRA CHAPMAN [address] [place] [address], [address], [place], [address], [place] [facility] 02/12/2024 12:01:38 02/13/2024 text/html ROS as noted in the HPI Patient is a 68 yo female being [...] she just received her am meds. IRA [address] [place] [address], [facility] [address], [place], [address], [facility] 02/13/2024 11:03:20 02/19/2024 text/html ROS as noted in the HPI Patient is a 68 yo female being [...] shoes on. Maintaining sats 95/97% on RA. IRACARLITA CHAPMAN [address] [place] [address], [address], [place], [address], [facility] 02/19/2024 14:04:57 02/21/2024 text/html ROS as noted in the HPI Patient is a 68 yo female being [...] monday and try to diurese. IRA CHAPMAN [address] [place] [address], [address], [place], [address], [facility] 02/21/2024 09:35:15 02/23/2024 text/html ROS as noted in the HPI Patient is a 68 yo female being [...] LBS SHOULD TITRATE TORSEMIDE DOSING. IRA CHAPMAN [address] [place] [address], [address], [place], [address], [facility] 02/23/2024 09:56:21 OBGyn Episode No OBEpisode recorded.
== END 2025-07-17 13:51 | disposition home or self-care (01) ==
LOC: HO.HMGCLNP 13:50
PROVIDERS: PCP Nurse Practitioner Family; Visit Provider Internal Medicine
DX: R31.0 Gross hematuria (principal)
CPT/HCPCS: 81001; 81003; 87086; 87088; 87186